=== PATIENT | male | born 1940 | race Caucasian/White ===

== ENCOUNTER 2020-05-31 15:13 | Inpatient (IN) | payer MEDICARE ==
[~2020-05-31] VITALS: Ht 170.2 cm; Wt 57.7 kg
[~2020-05-31 15:13] MED LIST: HYDROCHLOROTHIA25 M1 PO; LISINOPRIL40 MG PO; PRAVASTATIN SOD40 MG PO
[2020-05-31 15:23] VITALS: BP 111/76
[2020-05-31 15:57] LABS: ABSOLUTE LYMPHOCYTES 0.6 thou/uL (0.8-5.3); ABSOLUTE MONOCYTES 0.7 thou/uL (0.0-1.2); ABSOLUTE NEUTROPHILS 3.5 thou/uL (1.6-8.1); BASOPHILS 0.6 %; EOSINOPHILS 0.3 %; HEMATOCRIT 42.7 % (42.0-52.0); MCH 29.1 pg (26.0-34.0); MCHC 35.1 g/dL (28.0-37.0); MCV 82.9 fL (80.0-100.0); MPV 8.4 fl. (7.2-11.1); NUCLEATED RBCS 0 /100WBC; PLATELET COUNT* 243 thou/uL (150-400); POLYS 71.1 %; RBC 5.16 mil/uL (4.50-6.00); RDW-CV 14.2 % (10.5-14.5); WBC 4.9 thou/uL (4.0-11.0)
[2020-05-31] MEDS ORDERED: PROAIR HFA8.5 GM INH (15:58)
[2020-05-31] MEDS ORDERED: FLOMAX0.4 MG PO (15:59)
[2020-05-31 16:00] LABS: CALCIUM 8.4 mg/dL (8.5-10.1); CREATININE 1.7 mg/dL (0.6-1.3); POTASSIUM 3.8 mmol/L (3.5-5.1)
[2020-05-31 16:11] LABS: ALBUMIN 2.9 g/dL (3.4-5.0); TOTAL BILIRUBIN 0.7 mg/dL (<0.1-1.0); TOTAL PROTEIN 6.7 g/dL (6.4-8.2)
[2020-05-31 17:03] LABS: BE -2.2 mmol/L (-2 to +3); PCO2 45.8 mmHg (35.0-45.0); PO2 85.8 mmHg (75.0-100.0); pH 7.335 (7.340-7.450)
[2020-05-31 18:30] VITALS: BP 100/61
[2020-05-31 18:34] LABS: URINE BILIRUBIN NEGATIVE (Negative); URINE BLOOD NEGATIVE (Negative); URINE CLARITY CLEAR; URINE COLOR YELLOW; URINE GLUCOSE-RANDOM NEGATIVE (Negative); URINE KETONES NEGATIVE (Negative); URINE LEUKOCYTES-REFLEX NEGATIVE (Negative); URINE NITRITE-REFLEX NEGATIVE (Negative); URINE PROTEIN TRACE (Negative); URINE SPECIFIC GRAVITY >= 1.030 (1.005-1.030)
[2020-05-31 20:30] VITALS: BP 130/64
[2020-06-01] VITALS: BP 141/71
[2020-06-01 04:00] VITALS: BP 141/74
--- NOTE | 2020-06-01 07:21 | NUR ---
RECIEVED REPORT FROM ED RN. PT TRANSFERRED TO 233. PT A&OX4. 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 ADMISSION HISTORY & PHYSICAL ASSESSMENT COMPLETED AND CHARTED. PT ON O2 AT 4L NC. PT TRACING SR ON TELE. PT COMPLAINED OF BILATERAL SHOULDER PAIN-REFUSED PAIN MED. RELAYED VQ SCAN RESULT TO DR KEATING WITH NEW NEW ORDER. PLACED ON ENHANCED PRECAUTION. PT WITH LEFT FOREARM MARIKA TEAR-CLEANED, PAT DRY, PHOTOGRAPH TAKEN AND COVERED WITH MEPILEX. FALL PRECAUTIONS IN PLACE. CALL LIGHT WITHIN REACH.
[2020-06-01 08:43] LABS: CALCIUM 7.6 mg/dL (8.5-10.1); CREATININE 1.4 mg/dL (0.6-1.3); MAGNESIUM 1.6 mg/dL (1.8-2.4); POTASSIUM 3.9 mmol/L (3.5-5.1)
--- NOTE | 2020-06-01 10:25 | EKG ---
[place] [address] ELECTROCARDIOGRAM REPORT Name: REYNOLD FIGUEROA Room: [place] [address] ADM IN .R.#: [id number] Admission: 05/31/20 Attend Phys: Miguel Schafer, Discharge: Date of : 40 Date of Service: 05/31/20 1712 Report #: [id number] THIS REPORT FOR: //name// [facility] ED Test Date: 2020-05-31 Test Time: 17:12:27 Pat Name: REYNOLD FIGUEROA Department: Room: [facility] Gender: M Claim Attorney: william : 1940 Requested By: Mervin Martinez Order Number: [id number] MD: Amilcar Castellanos Measurements Intervals [place] Rate: 88 P: 77 [place]: 130 QRS: 52 QRSD: 70 T: 53 QT: 349 QTc: 423 Interpretive Statements Sinus rhythm LAE, consider biatrial enlargement low voltage Artifact in lead(s) II,III,aVR,aVL,aVF,V1,V2,V3,V4,V5,V6 Compared to ECG 12/08/2009 17:27:32 low voltage now present Electronically Signed On 06-01-2020 10:25:32 CDT by Amilcar Castellanos [email or web address] <ELECTRONICALLY SIGNED> By: Amilcar Castellanos MD, [facility] 06/01/20 1025 11 11 Amilcar Castellanos MD, [facility] /EPI
[2020-06-01 11:30] VITALS: BP 123/63
[2020-06-01 16:00] VITALS: BP 138/70
--- NOTE | 2020-06-01 18:45 | NUR ---
PT IS ALERT AND ORIENTED [place] AND FORGETFUL VERY PLEASANT DENIES PAIN UNLESS MOVING AROUND SOA NOTED WITH ANY ACTIVITY SITTING UP AT 90 DEGREES TO HELP 4L NC WEARS 3L NC AT HOME NOT COUGHING ADEQUATELY WAITING ON A GOOD SPUTUM SAMPLE IV ABT AND VIRAL CONT WHEEZES NOTED AUDIBLY THIS AM , BETTER DAY PROGRESSED MAGNESIUM REPLACED CALL LIGHT IN REACH DISCUSSED CALLING OUT IF NEEDS TO GET UP SINCE PREVIOUS FALL
[2020-06-01 20:00] VITALS: BP 125/58
[2020-06-01 23:56] VITALS: BP 140/66
[2020-06-02 04:59] LABS: HEMATOCRIT 37.4 % (42.0-52.0); MCH 28.3 pg (26.0-34.0); MCHC 34.5 g/dL (28.0-37.0); MCV 81.8 fL (80.0-100.0); MPV 8.1 fl. (7.2-11.1); RBC 4.58 mil/uL (4.50-6.00); RDW-CV 14.4 % (10.5-14.5)
[2020-06-02 05:02] VITALS: BP 150/60
[2020-06-02 05:09] LABS: HEMOGLOBIN 12.9 gm/dL (14.0-18.0)
[2020-06-02 05:17] LABS: ALBUMIN 2.6 g/dL (3.4-5.0); CALCIUM 7.8 mg/dL (8.5-10.1); CREATININE 1.4 mg/dL (0.6-1.3); MAGNESIUM 1.8 mg/dL (1.8-2.4); POTASSIUM 3.3 mmol/L (3.5-5.1); TOTAL BILIRUBIN 0.5 mg/dL (<0.1-1.0); TOTAL PROTEIN 6.2 g/dL (6.4-8.2)
[2020-06-02 08:00] VITALS: BP 142/80
--- NOTE | 2020-06-02 08:01 | NUR ---
ASSUMED CREA OF PT AFTE REPORT AT 1930. PT A&OX4. VSS. PHYSICAL ASSESSMENT COMPLETED AND CHARTED. PT ON O2 AT 4L NC-O2 SAT 84-85%. INCREASED O2 AT 5L NC WITH O2 SAT OF 90-92%.SOB WITH ACTIVITY NOTED. PT COMPLAINED OF BILATERAL SHOULDER PAIN-MED GIVEN PER MAR. MAINTAINED ON ENHANCED ISOLATION. FALL PRECAUTIONS IN PLACE. CALL LIGHT WITHIN REACH.
[2020-06-02 12:00] VITALS: BP 141/85
[2020-06-02 16:00] VITALS: BP 133/66
--- NOTE | 2020-06-02 16:51 | NUR ---
PT IN ENCHANCED PRECAUTIONS FOR COVID 19. PT REPORTS SOA WITH EXERTION BUT STATES IT IS BASELINE. IV REMDESVIR THIS AM. DENIES PAIN OR N/V. O@3L NC WHICH IS HOME DOSE
[2020-06-02 20:00] VITALS: BP 141/60
[2020-06-03] VITALS (7 sets, daily range): BP systolic 143–150; BP diastolic 57–74
[2020-06-03 04:58] LABS: HEMATOCRIT 39.7 % (42.0-52.0); HEMOGLOBIN 13.6 gm/dL (14.0-18.0); MCH 28.2 pg (26.0-34.0); MCHC 34.2 g/dL (28.0-37.0); MCV 82.3 fL (80.0-100.0); MPV 8.3 fl. (7.2-11.1); RBC 4.82 mil/uL (4.50-6.00); RDW-CV 14.3 % (10.5-14.5); WBC 6.1 thou/uL (4.0-11.0)
[2020-06-03 05:39] LABS: ALBUMIN 2.7 g/dL (3.4-5.0); CALCIUM 7.9 mg/dL (8.5-10.1); MAGNESIUM 1.8 mg/dL (1.8-2.4); TOTAL BILIRUBIN 0.7 mg/dL (<0.1-1.0)
--- NOTE | 2020-06-03 07:22 | NUR ---
ASSUMED CARE OF PT AFTER REPORT AT 1930. PT A&OX4. VSS. PHYSICAL ASSESSMENT COMPLETED AND CHARTED. PT VERY SOB ON EXERTION- O2 SAT CAN DROPPED DOWN TO 70'S. PT O2 TITRATED ACCORDINGLY. PT COMPLAINED OF BILATERAL SHUOLDER-MED GIVEN PER OCT. FALL PRECAUTIONS IN PLACE. CALL LIGHT WITHIN REACH. MAINTAINED ON ENHANCED ISOLATION.
[2020-06-03] MEDS ORDERED: ELIQUIS5 M1 PO (09:06)
[2020-06-03] MEDS ORDERED: ELIQUIS5 MG PO (09:06)
[2020-06-03] MEDS ORDERED: MUCINEX600 MG PO (10:07)
[2020-06-03] MEDS ORDERED: CEFDINIR300 MG PO (10:07)
[2020-06-03] MEDS ORDERED: PREDNISONE 10 M10 MG PO (10:07)
[2020-06-03] MEDS ORDERED: AZITHROMYCIN 2250 MG PO (10:07)
--- NOTE | 2020-06-03 13:16 | NUR ---
CM CONTACTD THE PT VIA THE PHONE IN THE HOSPITAL ROOM TO DISCUSS HIS HOME SITUATION, DISCHARGE PLANNING, AND TO INFORM OF THE ROLE OF CM. PT CURRENTLY UNDER ADVANCED PRECAUTIONS D/T BEING POSITIVE FOR COVID 19. PT A&O, INDEPENDENT WITH ADL'S PRIOR TO ADMIT. PT INFORMS THAT HIS SPOUSE 'TAKES CARE OF EVERYTHING SO CALL HER'. PT'S SPOUSE INFORMS THAT THE PT HAS HOME CONCENTRATOR, BUT NO OXYGEN TANKS. PT USES 3L O2 VIA NC CURRENTLY AT HOME. PT HAS NO HX OF HH OR SNF. CM INFORMED DURING PRIME ROUNDING OF THE PLAN TO D/C PT HOME TODAY WITH HH, PENDING REST AND EXERCISE TESTING. PT'S SPOUSE DECLINED HH AND STATES 'HE DOESN'T NEED IT MY DTR'S AND I TAKE CARE OF HIM AT HOME'. CM PROVIDED EDUCAION AND ENCOURAGEMENT ABOUT THE BENEFITS OF HH. PT AND SPOUSE STILL DECLINE. CM WILL REMAIN AVAILABLE TO ASSIST AND FOLLOW NEEDED.
[2020-06-03 14:06] LABS: HIV-1/HIV-2 ANTIBODY Non Reactive (Non Reactive)
--- NOTE | 2020-06-03 16:17 | NUR ---
At 1542 I obtained permission from patient to discuss his dismissal instructions with his , Мария. I contacted her via phone and reviewed pt dismissal instructions including medications and need to contact patient's primary care doctor to schedule a visit this upcoming week. I also contacted pharmacy @ [facility] to determine if patient is a candidate for influenza vaccine this admission. They suggest this topic be reviewed with patient's doctor during visit this week. I communicated this to patient's . At 1600 patient placed in wheelchair, home 02 applied at 3 liters per nc. Patient transported to main entrance and taken out to family vehicle. Dismissal paperwork given to family. At time of dismissal patient remained alert, oriented and has no c/o pain or distress. Regular nonlabored respirations. Stable at time of dismissal
--- NOTE | 2020-06-05 08:47 | NUR ---
CM CONTACTED PT'S SPOUSE TO DISCUSS ISSUE/CONCERN WITH INABILITY TO COVER ELIQUIS CO-PAY AMT. CM CONTACTED PT'S PHARMACY AND PROVIDED ELIQUIS $0 CO-PAY CARD INFO TO PHARMACY. PHARMACIST INFORMS THAT PT'S CO-PAY AMT FOR THE ELIQUIS STARTER PACK WILL BE $0. CM INFORMED PT'S SPOUSE OF THIS INFO AND SHE STATES THAT SHE WILL F/U WITH PT'S PHYSICIAN TO DISCUSS THE NEED TO CONTINUE ON THIS MEDICATION. PT HAS D/C'D AND CM NO LONGER FOLLOWING.
[2020-06-05 17:07] LABS: HEPATITIS B SURFACE AG Negative (Negative)
== END 2020-06-03 16:00 | disposition home or self-care (01) | DRG 871 ==
LOC: M.ERS 15:13 → M.TBA-ER 17:07 → M.2W 17:07
PROVIDERS: Emergency Medicine Emergency Medical Services; ADMIT Internal Medicine; ATTEND Internal Medicine
PROC: XW033E5 Introduction of Remdesivir Anti-infective into Peripheral Vein, Percutaneous Approach, New Technology Group 5 (ICD-10-PCS; principal; 2020-05-31)
DX: A41.89 Other specified sepsis (principal); U07.1 COVID-19; J12.89 Other viral pneumonia; I26.99 Other pulmonary embolism without acute cor pulmonale; J96.21 Acute and chronic respiratory failure with hypoxia; E44.0 Moderate protein-calorie malnutrition; Z68.1 Body mass index [BMI] 19.9 or less, adult; C34.90 Malignant neoplasm of unspecified part of unspecified bronchus or lung; R53.81 Other malaise; I12.9 Hypertensive chronic kidney disease with stage 1 through stage 4 chronic kidney disease, or unspecified chronic kidney disease; N18.30 Chronic kidney disease, stage 3 unspecified; F44.4 Conversion disorder with motor symptom or deficit; E78.00 Pure hypercholesterolemia, unspecified; J43.9 Emphysema, unspecified; Z92.3 Personal history of irradiation; Z79.899 Other long term (current) drug therapy; Z87.891 Personal history of nicotine dependence; Z86.73 Personal history of transient ischemic attack (TIA), and cerebral infarction without residual deficits; Z23 Encounter for immunization

== ENCOUNTER 2020-06-18 18:27 | Inpatient (IN) | payer MEDICARE ==
[~2020-06-18] VITALS: Ht 170.2 cm; Wt 61.7 kg
[~2020-06-18 18:27] MED LIST changes: +AZITHROMYCIN 2250 MG PO; +CEFDINIR300 MG PO; +ELIQUIS5 M1 PO; +ELIQUIS5 MG PO; +FLOMAX0.4 MG PO; +MUCINEX600 MG PO; +PREDNISONE 10 M10 MG PO; +PROAIR HFA8.5 GM INH
[2020-06-18 18:30] VITALS: BP 116/64
[2020-06-18 18:53] LABS: HEMATOCRIT 37.7 % (42.0-52.0); HEMOGLOBIN 12.4 gm/dL (14.0-18.0); MCH 27.6 pg (26.0-34.0); MCHC 32.9 g/dL (28.0-37.0); MCV 83.9 fL (80.0-100.0); MPV 8.4 fl. (7.2-11.1); NUCLEATED RBCS 0 /100WBC; PLATELET COUNT* 312 thou/uL (150-400); RBC 4.49 mil/uL (4.50-6.00); RDW-CV 14.9 % (10.5-14.5); WBC 15.1 thou/uL (4.0-11.0)
[2020-06-18 19:02] LABS: CALCIUM 8.8 mg/dL (8.5-10.1); CREATININE 1.8 mg/dL (0.6-1.3); POTASSIUM 4.7 mmol/L (3.5-5.1)
[2020-06-18 19:11] LABS: ALBUMIN 2.4 g/dL (3.4-5.0); MAGNESIUM 1.8 mg/dL (1.8-2.4); TOTAL BILIRUBIN 1.2 mg/dL (<0.1-1.0); TOTAL PROTEIN 6.9 g/dL (6.4-8.2)
[2020-06-18 20:06] LABS: ABSOLUTE LYMPHOCYTES 0.3 thou/uL (0.8-5.3); ABSOLUTE MONOCYTES 1.1 thou/uL (0.0-1.2); ABSOLUTE NEUTROPHILS 13.7 thou/uL (1.6-8.1)
[2020-06-18 20:07] LABS: ANISOCYTOSIS Occasional; PLATELET ESTIMATE ADEQUATE
[2020-06-18 20:12] LABS: BE -1.3 mmol/L (-2 to +3); PCO2 31.9 mmHg (35.0-45.0); pH 7.454 (7.340-7.450)
[2020-06-18 20:16] LABS: PO2 59.8 mmHg (75.0-100.0)
[2020-06-18 20:42] VITALS: BP 116/64
[2020-06-18 21:00] VITALS: BP 114/64
[2020-06-18 23:45] VITALS: BP 125/69
[2020-06-19 03:16] VITALS: BP 113/59
[2020-06-19 08:14] VITALS: BP 116/64
--- NOTE | 2020-06-19 10:20 | EKG ---
[place] [address] ELECTROCARDIOGRAM REPORT Name: REYNOLD FIGUEROA Room: [address] ADM IN [facility].#: [id number] Admission: 06/18/20 Attend Phys: Nitish Gee, Discharge: Date of : 40 Date of Service: 06/18/20 1833 Report #: [id number] THIS REPORT FOR: //name// [facility] ED Test Date: 2020-06-18 Test Time: 18:33:44 Pat Name: REYNOLD FIGUEROA Department: Room: [facility] Gender: M Marketing Sales Manager: ALE : 1940 Requested By: Mervin Martinez Order Number: [id number] MD: Amilcar Castellanos Measurements Intervals [place] Rate: 106 P: 93 [place]: 113 QRS: 32 QRSD: 159 T: -40 QT: 315 QTc: 419 Interpretive Statements Sinus tachycardia Nonspecific intraventricular conduction delay ST depr, consider ischemia, inferior leads Baseline wander in lead(s) V3 Compared to ECG 05/31/2020 17:12:27 Intraventricular conduction delay now present Possible ischemia now present Sinus rhythm no longer present Electronically Signed On 06-19-2020 10:20:08 CDT by Amilcar Castellanos [email or web address] <ELECTRONICALLY SIGNED> By: Amilcar Castellanos MD, FACC 06/19/20 1020 32 32 Amilcar Castellanos MD, FAC /EPI
[2020-06-19 11:34] VITALS: BP 124/64
[2020-06-19 16:00] VITALS: BP 144/54
[2020-06-19 21:00] VITALS: BP 138/67
[2020-06-19 22:39] LABS: URINE BILIRUBIN NEGATIVE (Negative); URINE BLOOD NEGATIVE (Negative); URINE CLARITY CLEAR; URINE COLOR YELLOW; URINE GLUCOSE-RANDOM NEGATIVE (Negative); URINE KETONES NEGATIVE (Negative); URINE LEUKOCYTES NEGATIVE (Negative); URINE NITRITE NEGATIVE (Negative); URINE PROTEIN NEGATIVE (Negative); URINE SPECIFIC GRAVITY 1.025 (1.005-1.030); URINE UROBILINOGEN 0.2 E.U./dl (0.2-1.0)
[2020-06-20 00:37] VITALS: BP 112/54
[2020-06-20 04:20] VITALS: BP 124/64
[2020-06-20 08:00] VITALS: BP 122/60
[2020-06-20 11:42] VITALS: BP 123/64
[2020-06-20 14:00] LABS: ABSOLUTE BASOPHILS 0.1 thou/uL (0.0-0.2); ABSOLUTE LYMPHOCYTES 0.1 thou/uL (0.8-5.3); ABSOLUTE MONOCYTES 0.4 thou/uL (0.0-1.2); ABSOLUTE NEUTROPHILS 12.8 thou/uL (1.6-8.1); BASOPHILS 0.6 %; HEMATOCRIT 29.7 % (42.0-52.0); LYMPHOCYTES 1.1 %; MCHC 33.5 g/dL (28.0-37.0); MCV 83.5 fL (80.0-100.0); MONOCYTES 2.7 %; MPV 8.2 fl. (7.2-11.1); NUCLEATED RBCS 0 /100WBC; PLATELET COUNT* 259 thou/uL (150-400); POLYS 95.6 %; RBC 3.56 mil/uL (4.50-6.00); RDW-CV 14.7 % (10.5-14.5); WBC 13.4 thou/uL (4.0-11.0)
[2020-06-20 14:12] LABS: ALBUMIN 2.2 g/dL (3.4-5.0); CALCIUM 8.2 mg/dL (8.5-10.1); CREATININE 1.4 mg/dL (0.6-1.3); MAGNESIUM 1.9 mg/dL (1.8-2.4); PHOSPHORUS* 2.6 mg/dL (2.5-4.9); POTASSIUM 4.4 mmol/L (3.5-5.1); TOTAL BILIRUBIN 0.4 mg/dL (<0.1-1.0)
[2020-06-20 14:27] LABS: APTT 31.2 Seconds (25.0-31.3); INR 1.1; PROTIME 11.4 Seconds (9.20-11.50)
[2020-06-20 16:00] VITALS: BP 110/52
[2020-06-20 20:00] VITALS: BP 129/60
[2020-06-21] VITALS: BP 132/66
[2020-06-21 04:00] VITALS: BP 140/69
[2020-06-21 04:35] LABS: HEMATOCRIT 28.6 % (42.0-52.0); HEMOGLOBIN 9.6 gm/dL (14.0-18.0); MCH 28.1 pg (26.0-34.0); MCHC 33.7 g/dL (28.0-37.0); MCV 83.4 fL (80.0-100.0); MPV 8.2 fl. (7.2-11.1); NUCLEATED RBCS 0 /100WBC; PLATELET COUNT* 241 thou/uL (150-400); RBC 3.43 mil/uL (4.50-6.00); RDW-CV 14.3 % (10.5-14.5); WBC 8.6 thou/uL (4.0-11.0)
[2020-06-21 04:43] LABS: CALCIUM 8.3 mg/dL (8.5-10.1); CREATININE 1.4 mg/dL (0.6-1.3); MAGNESIUM 2.1 mg/dL (1.8-2.4); POTASSIUM 4.6 mmol/L (3.5-5.1)
[2020-06-21 06:00] LABS: ABSOLUTE LYMPHOCYTES 0.1 thou/uL (0.8-5.3); ABSOLUTE MONOCYTES 0.3 thou/uL (0.0-1.2); ABSOLUTE NEUTROPHILS 8.3 thou/uL (1.6-8.1)
[2020-06-21 06:01] LABS: ANISOCYTOSIS 1+; PLATELET ESTIMATE ADEQUATE; POIKILOCYTOSIS 1+
[2020-06-21 08:00] VITALS: BP 127/59
[2020-06-21 16:00] VITALS: BP 136/64
[2020-06-21 20:00] VITALS: BP 126/62
[2020-06-21 20:04] LABS: ABSOLUTE LYMPHOCYTES 0.1 thou/uL (0.8-5.3); ABSOLUTE MONOCYTES 0.3 thou/uL (0.0-1.2); ABSOLUTE NEUTROPHILS 7.7 thou/uL (1.6-8.1); BASOPHILS 0.2 %; HEMATOCRIT 28.4 % (42.0-52.0); HEMOGLOBIN 9.5 gm/dL (14.0-18.0); LYMPHOCYTES 1.3 %; MCHC 33.5 g/dL (28.0-37.0); MCV 83.7 fL (80.0-100.0); MPV 8.1 fl. (7.2-11.1); NUCLEATED RBCS 0 /100WBC; PLATELET COUNT* 245 thou/uL (150-400); POLYS 94.5 %; RDW-CV 14.3 % (10.5-14.5); WBC 8.2 thou/uL (4.0-11.0)
[2020-06-22] VITALS: BP 131/70
[2020-06-22 04:57] VITALS: BP 102/69
[2020-06-22 08:00] VITALS: BP 139/68; BP 143/80
[2020-06-22 13:09] VITALS: BP 132/64
[2020-06-22 17:02] VITALS: BP 144/69
[2020-06-22 20:00] VITALS: BP 136/77
[2020-06-23 00:32] VITALS: BP 150/60
[2020-06-23 04:28] VITALS: BP 162/55
[2020-06-23 08:00] VITALS: BP 146/75
[2020-06-23 13:15] VITALS: BP 154/70
[2020-06-23 17:38] VITALS: BP 151/64
[2020-06-23 21:50] VITALS: BP 142/69
[2020-06-24] VITALS: BP 154/75
[2020-06-24 05:15] VITALS: BP 152/76
[2020-06-24 08:00] VITALS: BP 131/69
[2020-06-24 10:33] LABS: HEMATOCRIT 31.6 % (42.0-52.0); HEMOGLOBIN 10.5 gm/dL (14.0-18.0); MCH 28.2 pg (26.0-34.0); MCHC 33.2 g/dL (28.0-37.0); MPV 8.3 fl. (7.2-11.1); NUCLEATED RBCS 0 /100WBC; PLATELET COUNT* 257 thou/uL (150-400); RBC 3.72 mil/uL (4.50-6.00); RDW-CV 14.8 % (10.5-14.5); WBC 9.2 thou/uL (4.0-11.0)
[2020-06-24 10:50] LABS: ALBUMIN 2.2 g/dL (3.4-5.0); CALCIUM 8.1 mg/dL (8.5-10.1); CREATININE 1.4 mg/dL (0.6-1.3); POTASSIUM 4.7 mmol/L (3.5-5.1); TOTAL BILIRUBIN 1.1 mg/dL (<0.1-1.0); TOTAL PROTEIN 5.4 g/dL (6.4-8.2)
[2020-06-24 10:58] LABS: ABSOLUTE LYMPHOCYTES 0.3 thou/uL (0.8-5.3); ABSOLUTE MONOCYTES 0.5 thou/uL (0.0-1.2); ABSOLUTE NEUTROPHILS 8.5 thou/uL (1.6-8.1); PLATELET ESTIMATE ADEQUATE
[2020-06-24 12:00] VITALS: BP 141/69
[2020-06-24 16:00] VITALS: BP 138/65
[2020-06-24 20:40] VITALS: BP 151/71
[2020-06-25] VITALS: BP 153/56
[2020-06-25 05:19] LABS: ABSOLUTE LYMPHOCYTES 0.2 thou/uL (0.8-5.3); ABSOLUTE MONOCYTES 0.3 thou/uL (0.0-1.2); ABSOLUTE NEUTROPHILS 8.2 thou/uL (1.6-8.1); BASOPHILS 0.2 %; HEMOGLOBIN 9.8 gm/dL (14.0-18.0); LYMPHOCYTES 2.2 %; MCH 28.2 pg (26.0-34.0); MCHC 33.8 g/dL (28.0-37.0); MCV 83.6 fL (80.0-100.0); MONOCYTES 3.8 %; MPV 8.2 fl. (7.2-11.1); NUCLEATED RBCS 0 /100WBC; PLATELET COUNT* 232 thou/uL (150-400); POLYS 93.8 %; RBC 3.46 mil/uL (4.50-6.00); RDW-CV 14.9 % (10.5-14.5); WBC 8.8 thou/uL (4.0-11.0)
[2020-06-25 05:34] LABS: ALBUMIN 2.2 g/dL (3.4-5.0); CALCIUM 8.2 mg/dL (8.5-10.1); CREATININE 1.2 mg/dL (0.6-1.3); MAGNESIUM 1.7 mg/dL (1.8-2.4); POTASSIUM 4.9 mmol/L (3.5-5.1)
[2020-06-25 08:00] VITALS: BP 148/60
[2020-06-25 12:00] VITALS: BP 137/65
[2020-06-25 16:00] VITALS: BP 140/62
--- NOTE | 2020-06-25 17:46 | 2DMMODE ---
[place] [address] 2 D/M-MODE ECHOCARDIOGRAM Name: REYNOLD FIGUEROA Room: [place] [address] ADM IN [place].R.#: [id number] Admission: 06/18/20 Attend Phys: Nitish Gee, Discharge: Date of : 40 Date of Service: 06/25/20 1745 Report #: [id number] THIS REPORT FOR: cc: [facility] - Clinic physician unknown [facility] - Clinic physician unknown Robbin Oswald MD [facility] ~ APPROVED REPORT Study performed: 06/25/2020 09:45:10 EXAM: Comprehensive 2D, Doppler, and color-flow Echocardiogram Patient Location: Bedside BSA: 1.64 HR: 82 bpm BP: 148/60 mmHg Other Information Study Quality: Fair Indications Pulmonary Embolism Dyspnea 2D Dimensions IVSd: 12.00 (7-11mm) LVOT Diam: 19.25 (18-24mm) LVDd: 35.48 mm PWd: 10.19 (7-11mm) LVDs: 27.18 (25-40mm) Aortic Root: 22.55 mm Volumes Left Atrial Volume (Systole) LA ESV Index: 18.60 mL/m2 Aortic Valve AoV Peak Nasim.: 1.49 m/s AO Peak Gr.: 8.89 mmHg LVOT Max P.63 mmHg AO Mean Gr.: 4.60 mmHg LVOT Mean P.08 mmHg LVOT Max V: 0.81 m/s AO V2 VTI: 27.21 cm LVOT Mean V: 0.46 m/s DOMINGO (VTI): 1.89 cm2 LVOT V1 VTI: 17.70 [place] [address] 2 D/M-MODE ECHOCARDIOGRAM Name: REYNOLD FIGUEROA Room: [address] IN ..#: [id number] Admission: 06/18/20 Attend Phys: Nitish Gee, Discharge: Date of : 40 Date of Service: 06/25/20 1745 Report #: [id number] E/A Ratio: 0.59 MV Decel. Time: 294.22 ms MV E Max Nasim.: 0.52 m/s MV PHT: 85.32 ms MVA (PHT): 2.58 cm2 Pulmonary Valve PV Peak Nasim.: 1.23 m/s PV Peak Gr.: 6.07 mmHg Tricuspid Valve RAP Estimate: 5.00 mmHg TR Peak Gr.: 45.52 mmHg RVSP: 50.52 mmHg PA Pressure: 50.52 mmHg Left Ventricle The left ventricle is normal size. There is normal LV segmental wall motion. There is normal left ventricular wall thickness. Left ventricular systolic function is normal. The left ventricular ejection fraction is within the normal range. LVEF is 60-65%. Right Ventricle The right ventricle is normal size. The right ventricular systolic function is normal. Atria The left atrium size is normal. The right atrium size is normal. Aortic Valve The aortic valve is normal in structure. No aortic regurgitation is present. There is no aortic valvular stenosis. Mitral Valve The mitral valve is normal in structure. There is no mitral valve regurgitation noted. No evidence of mitral valve stenosis. Tricuspid Valve The tricuspid valve is normal in structure. Mild tricuspid regurgitation. The RVSP is 40-45 mmHg. Pulmonic Valve The pulmonary valve is normal in structure. There is no pulmonic valvular regurgitation. Great Vessels The aortic root is normal in size. Aortic [place] [address] 2 D/M-MODE ECHOCARDIOGRAM Name: REYNOLD FIGUEROA Room: [place] [address] ADM IN .R.#: [id number] Admission: 06/18/20 Attend Phys: Nitish Gee, Discharge: Date of : 40 Date of Service: 06/25/20 1745 Report #: [id number] is not visualized. Pericardium There is no pericardial effusion. <Conclusion> The left ventricle is normal size. There is normal left ventricular wall thickness. Left ventricular systolic function is normal. The left ventricular ejection fraction is within the normal range. LVEF is 60-65%. The right ventricle is normal size. The left atrium size is normal. The aortic valve is normal in structure. The mitral valve is normal in structure. The tricuspid valve is normal in structure. Mild tricuspid regurgitation. The RVSP is 40-45 mmHg. There is no pericardial effusion. There is normal LV segmental wall motion. <ELECTRONICALLY SIGNED> By: Robbin Oswald MD, FACC 06/25/20 1745 44 44 Robbin Oswald MD, FACC /INF
[2020-06-25 19:45] VITALS: BP 144/76
[2020-06-26] VITALS: BP 144/72
[2020-06-26 04:30] VITALS: BP 141/71
[2020-06-26 05:41] LABS: HEMATOCRIT 29.5 % (42.0-52.0); HEMOGLOBIN 10.2 gm/dL (14.0-18.0); MCH 28.7 pg (26.0-34.0); MCHC 34.6 g/dL (28.0-37.0); MCV 83.1 fL (80.0-100.0); MPV 8.4 fl. (7.2-11.1); RBC 3.55 mil/uL (4.50-6.00); RDW-CV 14.9 % (10.5-14.5); WBC 10.5 thou/uL (4.0-11.0)
[2020-06-26 05:56] LABS: CALCIUM 8.1 mg/dL (8.5-10.1); CREATININE 1.3 mg/dL (0.6-1.3); POTASSIUM 4.1 mmol/L (3.5-5.1)
[2020-06-26 08:00] VITALS: BP 143/76
[2020-06-26 12:00] VITALS: BP 127/59
[2020-06-26 16:00] VITALS: BP 131/76; BP 187/85
[2020-06-26 20:00] VITALS: BP 93/57
[2020-06-27 00:49] VITALS: BP 101/57
[2020-06-27 04:55] VITALS: BP 108/55
[2020-06-27 05:29] LABS: ABSOLUTE LYMPHOCYTES 0.3 thou/uL (0.8-5.3); ABSOLUTE MONOCYTES 0.3 thou/uL (0.0-1.2); ABSOLUTE NEUTROPHILS 10.3 thou/uL (1.6-8.1); BASOPHILS 0.1 %; EOSINOPHILS 0.2 %; HEMATOCRIT 27.7 % (42.0-52.0); HEMOGLOBIN 9.3 gm/dL (14.0-18.0); MCHC 33.6 g/dL (28.0-37.0); MCV 83.3 fL (80.0-100.0); MONOCYTES 3.2 %; MPV 8.4 fl. (7.2-11.1); NUCLEATED RBCS 0 /100WBC; PLATELET COUNT* 226 thou/uL (150-400); POLYS 93.5 %; RBC 3.33 mil/uL (4.50-6.00); RDW-CV 15.3 % (10.5-14.5)
[2020-06-27 05:51] LABS: CREATININE 1.3 mg/dL (0.6-1.3); POTASSIUM 3.7 mmol/L (3.5-5.1)
[2020-06-27 08:00] VITALS: BP 114/67
--- NOTE | 2020-06-27 08:28 | EKG ---
[place] [address] ELECTROCARDIOGRAM REPORT Name: REYNOLD FIGUEROA Room: [place] [address] ADM IN .R.#: [id number] Admission: 06/18/20 Attend Phys: Nitish Gee, Discharge: Date of : 40 Date of Service: 06/27/20 0143 Report #: [id number] THIS REPORT FOR: //name// [facility] Test Date: 2020-06-27 Test Time: 01:43:20 Pat Name: REYNOLD FIGUEROA Department: Room: [place] [address] Gender: M Cops: [id number] : 1940 Requested By: Que Duran Order Number: [id number] Venkatesh MD: Tyrese Lo Measurements Intervals [place] Rate: 110 P: VT: QRS: 48 QRSD: 85 T: 54 QT: 345 QTc: 467 Interpretive Statements Atrial fibrillation Borderline low voltage, extremity leads Compared to ECG 06/26/2020 14:02:50 Supraventricular tachycardia no longer present Early repolarization no longer present Electronically Signed On 06-27-2020 8:28:34 CDT by Tyrese Lo [email or web address] <ELECTRONICALLY SIGNED> By: Tyrese Lo MD, FACC 06/27/20 0828 2 2 Tyrese Lo MD, FAC /EPI
[2020-06-27 12:00] VITALS: BP 95/53
--- NOTE | 2020-06-27 12:43 | EKG ---
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: KASI : 1940 Requested By: Nitish Gee Order Number: [id number] Venkatesh MD: Robbin Oswald Measurements Intervals [place] Rate: 177 P: 71 [place]: 165 QRS: 24 QRSD: 78 T: -83 QT: 280 QTc: 481 Interpretive Statements Supraventricular tachycardia Borderline low voltage, extremity leads Repolarization abnormality, prob rate related Baseline wander in lead(s) V3 Compared to ECG 06/18/2020 18:33:44 Early repolarization now present Sinus tachycardia no longer present Intraventricular conduction delay no longer present Electronically Signed On 06-27-2020 12:43:42 CDT by Robbin Oswald [email or web address] <ELECTRONICALLY SIGNED> By: Robbin Oswald MD, FACC 06/27/20 1243 140 140 Robbin Oswald MD, [facility] /EPI
[2020-06-27 16:00] VITALS: BP 110/62
[2020-06-27 20:17] VITALS: BP 117/57
[2020-06-28] VITALS: BP 107/55
[2020-06-28 04:00] VITALS: BP 119/54
[2020-06-28 08:00] VITALS: BP 110/57; BP 121/49
[2020-06-28 12:09] VITALS: BP 108/53
--- NOTE | 2020-06-28 13:11 | EKG ---
[place] [address] ELECTROCARDIOGRAM REPORT Name: REYNOLD FIGUEROA Room: [address] ADM IN .R.#: [id number] Admission: 06/18/20 Attend Phys: Nitish Gee, Discharge: Date of : 40 Date of Service: 06/28/20 1058 Report #: [id number] THIS REPORT FOR: //name// [facility] Test Date: 2020-06-28 Test Time: 10:58:35 Pat Name: REYNOLD FIGUEROA Department: Room: [address] Gender: M Emergency Room Nurse: : 1940 Requested By: Abena Trevino Order Number: [id number] Venkatesh MD: Robbin Oswald Measurements Intervals [place] Rate: 66 P: 62 [place]: 122 QRS: 42 QRSD: 97 T: 33 QT: 464 QTc: 487 Interpretive Statements Sinus rhythm Low voltage, extremity leads Borderline prolonged QT interval Compared to ECG 06/27/2020 01:43:20 Atrial fibrillation no longer present Electronically Signed On 06-28-2020 13:11:11 CDT by Robbin Oswald [email or web address] <ELECTRONICALLY SIGNED> By: Robbin Oswald MD, FACC 06/28/20 1311 1058 1058 Robbin Oswald MD, [facility] /EPI
[2020-06-28 15:38] LABS: HEMATOCRIT 25.9 % (42.0-52.0); HEMOGLOBIN 8.7 gm/dL (14.0-18.0); MCH 28.4 pg (26.0-34.0); MCHC 33.7 g/dL (28.0-37.0); MCV 84.3 fL (80.0-100.0); MPV 8.5 fl. (7.2-11.1); NUCLEATED RBCS 0 /100WBC; PLATELET COUNT* 182 thou/uL (150-400); RBC 3.07 mil/uL (4.50-6.00); RDW-CV 15.4 % (10.5-14.5); WBC 10.9 thou/uL (4.0-11.0)
[2020-06-28 15:56] LABS: CALCIUM 7.3 mg/dL (8.5-10.1); CREATININE 1.3 mg/dL (0.6-1.3); POTASSIUM 4.4 mmol/L (3.5-5.1); TOTAL PROTEIN 4.7 g/dL (6.4-8.2)
[2020-06-28 16:10] LABS: ABSOLUTE LYMPHOCYTES 0.4 thou/uL (0.8-5.3); ABSOLUTE MONOCYTES 0.2 thou/uL (0.0-1.2); ABSOLUTE NEUTROPHILS 10.2 thou/uL (1.6-8.1); ATYPICAL LYMPHS 1 %; PLATELET ESTIMATE ADEQUATE
[2020-06-28 16:16] VITALS: BP 93/46
[2020-06-28 20:09] VITALS: BP 102/55
[2020-06-29] VITALS: BP 96/52
[2020-06-29 04:00] VITALS: BP 112/53; BP 120/62
[2020-06-29 05:43] LABS: ABSOLUTE LYMPHOCYTES 0.1 thou/uL (0.8-5.3); ABSOLUTE MONOCYTES 0.3 thou/uL (0.0-1.2); ABSOLUTE NEUTROPHILS 9.2 thou/uL (1.6-8.1); BASOPHILS 0.2 %; LYMPHOCYTES 1.2 %; MCH 28.4 pg (26.0-34.0); MCHC 33.5 g/dL (28.0-37.0); MCV 84.7 fL (80.0-100.0); MONOCYTES 3.5 %; MPV 8.7 fl. (7.2-11.1); NUCLEATED RBCS 0 /100WBC; PLATELET COUNT* 182 thou/uL (150-400); POLYS 95.1 %; RBC 3.18 mil/uL (4.50-6.00); RDW-CV 15.7 % (10.5-14.5); WBC 9.7 thou/uL (4.0-11.0)
[2020-06-29 06:27] LABS: CALCIUM 7.6 mg/dL (8.5-10.1); CREATININE 1.2 mg/dL (0.6-1.3); POTASSIUM 4.2 mmol/L (3.5-5.1); TOTAL PROTEIN 4.7 g/dL (6.4-8.2)
[2020-06-29 08:00] VITALS: BP 122/51
[2020-06-29 11:48] VITALS: BP 113/57
[2020-06-29 15:56] VITALS: BP 112/57
[2020-06-29 20:29] VITALS: BP 106/57
[2020-06-30] VITALS: BP 133/62
[2020-06-30 04:00] VITALS: BP 133/65
[2020-06-30 05:53] LABS: ABSOLUTE LYMPHOCYTES 0.2 thou/uL (0.8-5.3); ABSOLUTE MONOCYTES 0.4 thou/uL (0.0-1.2); ABSOLUTE NEUTROPHILS 10.3 thou/uL (1.6-8.1); BASOPHILS 0.1 %; EOSINOPHILS 0.1 %; HEMATOCRIT 26.8 % (42.0-52.0); HEMOGLOBIN 9.1 gm/dL (14.0-18.0); LYMPHOCYTES 1.6 %; MCH 28.7 pg (26.0-34.0); MCHC 33.9 g/dL (28.0-37.0); MCV 84.7 fL (80.0-100.0); MONOCYTES 3.7 %; MPV 8.8 fl. (7.2-11.1); NUCLEATED RBCS 0 /100WBC; PLATELET COUNT* 165 thou/uL (150-400); POLYS 94.5 %; RBC 3.17 mil/uL (4.50-6.00); RDW-CV 15.7 % (10.5-14.5); WBC 10.9 thou/uL (4.0-11.0)
[2020-06-30 06:10] LABS: CALCIUM 7.6 mg/dL (8.5-10.1); CREATININE 1.3 mg/dL (0.6-1.3); POTASSIUM 3.6 mmol/L (3.5-5.1); TOTAL PROTEIN 4.9 g/dL (6.4-8.2)
[2020-06-30 08:00] VITALS: BP 114/59
[2020-06-30] MEDS ORDERED: DILTIAZEM 24HR180 M1 PO (11:22)
[2020-06-30] MEDS ORDERED: PACERONE 200 M200 M1 PO (11:22)
[2020-06-30] MEDS ORDERED: TRAMADOL 50 MG50 MG PO (11:25)
[2020-06-30] MEDS ORDERED: NEXIUM40 MG PO (11:25)
[2020-06-30 12:00] VITALS: BP 128/65
[2020-06-30 20:00] VITALS: BP 132/79
[2020-07-01] VITALS (7 sets, daily range): BP systolic 125–141; BP diastolic 61–90
[2020-07-01] MEDS ORDERED: PACERONE 200 M200 M1 PO (07:55)
--- NOTE | 2020-07-03 13:00 | CON ---
[address] [address] CONSULTATION Name: REYNOLD FIGUEROA Room: [address] IN [facility].#: [id number] Admission: 06/18/20 Attend Phys: Nitish Gee MD Discharge: 07/01/20 Date of : 40 Report #: [id number] THIS REPORT FOR: //name// cc: [facility] - Clinic physician unknown [facility] - Clinic physician unknown ~ DATE OF SERVICE: 06/20/2020 REQUESTING PHYSICIAN: Dr. Sweet. INDICATION FOR CONSULTATION: Acute hypoxemic respiratory failure. HISTORY OF PRESENT ILLNESS: This is a 79-year-old gentleman with past medical history includes a history of carcinoma of the lung, the patient does not recall what type of lung cancer he had and on which side, he says he has received radiation treatments for this, also does have a history of COPD, he is on long-term oxygen, is not on long-term prednisone. He also has mild elevation in creatinine at times, although his creatinine has at times does touch normal levels at 1.0. The patient was recently admitted to this hospital and was found to have COVID-19. The patient at that time did receive remdesivir in addition to corticosteroids. The patient also was treated with Zithromax as well as cefdinir. During the previous hospitalization, the patient did have a perfusion scan, which showed several unexplained filling defects. This is consistent with acute pulmonary emboli. Therefore, the patient also was anticoagulated at that time. The patient says that he has been taking his anticoagulation which is Eliquis regularly since then. The patient's condition still worsened and he presented to the Emergency Room 2 days ago. His COVID antigen is now negative; however, his PCR is positive. He was now desaturating to 87% on room air. He does take 3 liters oxygen at home. The patient was clearly labored and short of breath and therefore he was admitted. He does have a cough, not much sputum. No chest pain, no swelling of lower extremities or calf pain, not been febrile, has not had upper respiratory complaints. Since admission however, there has been a worsening in his respiratory status. He was initially requiring only 3 liters of oxygen to maintain O2 saturation in the low 90s. The patient now is up to 10 liters and is more short of breath. He answers to the negative for 12 questions for review of systems except as mentioned above. PAST MEDICAL HISTORY: Recent COVID-19, COPD, on oxygen long-term, carcinoma of the lung. He has had several radiation treatments at [facility]. 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 Creatinine mostly elevated to around 1.3-1.4, but at times, does go down to 1.0, hypertension. I do not have a measure of his left ventricular ejection fraction available at this time. He is on long-term oxygen as above. SOCIAL HISTORY: Extensive history of smoking more than a pack a day for several decades, discontinued 10 years ago. 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 No known history of heavy alcohol use or illegal drug use. CURRENT MEDICATIONS: List in [employer] reviewed. HOME MEDICATIONS: List in [employer] reviewed. Also, see discussion above. FAMILY HISTORY: There is no pertinent family history. ALLERGIES: No known drug allergies. PHYSICAL EXAMINATION: He does appear to be short of breath at rest.: He is alert, awake and oriented. He was tachypneic into the mid 20s at the time of my examination did have some accessory muscle use. VITAL SIGNS: Pulse still of 70 and a blood pressure 123/64. He was saturating around 92-93% on 10 liters oxygen via nasal cannula. Afebrile with a temperature of 36.9. HEENT: Head is normocephalic and atraumatic. Pupils are equal and reactive. There is no throat erythema. There is no thrush in his throat. NECK: Does not show raised JVP, asymmetry, mass or lymph nodes. CHEST: Symmetrical expansion on inspection and palpation, on auscultation, breath sounds are bilaterally equal, but decreased. Expirations are prolonged. I do not hear any added sounds. HEART: Regular. There is no murmur. ABDOMEN: Soft and nontender. EXTREMITIES: Lower extremities show no edema, no calf tenderness. SKIN: Dry and intact. NEUROLOGICAL: Moves all extremities bilaterally equally and spontaneously with no focal deficit identified. LABORATORY DATA: The patient's CT chest as well as chest x-rays are reviewed and are as discussed below. ASSESSMENT AND PLAN: 1. Nnzjp-am-qbdeewd hypoxemic respiratory failure. It appears likely to me that the patient is bronchospastic. In addition, he has a new opacity at the right lung base on his chest x-ray, which is likely mucous plugging. This is the likely etiology of the patient's worsening respiratory status. At this time, I would recommend that he remains on a BiPAP while asleep as well as [address] [place] [address] CONSULTATION Name: REYNOLD FIGUEROA Room: [address]#: [id number] Admission: 06/18/20 Attend Phys: Nitish Gee MD Discharge: 07/01/20 Date of : 40 Report #: [id number] p.r.n. We will continue to titrate oxygen while awake. 2. Chronic obstructive pulmonary disease exacerbation. I recommend increasing his nebulizers as well as steroids. The same are ordered. I also ordered an insulin sliding scale as I am increasing his steroids. 3. Pulmonary infiltrates. Part of this may be secondary to his malignancy. Regardless, since he has already been treated with Zithromax as well as cefdinir towards the beginning of this month I went ahead and broaden coverage to doxycycline and Zosyn. Recommend obtaining a sputum culture if possible, will send off a nasal swab for methicillin-resistant Staphylococcus aureus. 4. Mucus plugging/possible right-sided pleural effusion, the new chest x-ray is reviewed. There is volume loss and increased opacity at the right lung base compared with the x-ray done 2 days ago. It appears likely to me that this is secondary to mucous plugging. Therefore, I did order inhaled Mucomyst as well as Mucinex, also recommended BiPAP as above. If the findings persist, then I will be inclined to obtain a CT chest without contrast again tomorrow morning. 5. Carcinoma lung. There are several possibilities. 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 6. COVID-19. The patient is still COVID-19 PCR positive. Considering that he will be on nebulizers as well as a BiPAP I agree with keeping him in enhanced isolation in a negative pressure room. 6. Acute pulmonary embolism, perfusion scan as discussed above. He is too high risk to perform a CTA chest, I feel that it is reasonable to presume that he did have pulmonary emboli and treat accordingly. I would also like to do venous Dopplers. I did do a D-dimer today. I would also down the line plan to obtain an echocardiogram to look at his right heart. 7. Acute on chronic renal failure. The patient appears to have some renal insufficiency at baseline as above. His creatinine was elevated to 1.8 on admission, has now improved to 1.4. We will therefore be cautious in diuresing this patient and I did not order any diuretics at this time, I would also like to rule out any urinary tract obstruction by obtaining a renal ultrasound. 8. Clostridium difficile prophylaxis, Florastor. 9. Gastrointestinal prophylaxis, already on Pepcid. Thanks for this consultation. <ELECTRONICALLY SIGNED> By: Walter Austin MD 07/03/20 1300 1612 1706Aagnes Austin MD /nt
== END 2020-07-01 17:05 | DRG 871 ==
LOC: M.ERS 18:27 → M.TBA-ER 20:03 → M.2W 20:03
PROVIDERS: Emergency Medicine Emergency Medical Services; Family Medicine; Internal Medicine; Internal Medicine Critical Care Medicine; ADMIT Internal Medicine; ATTEND Internal Medicine
PROC: 5A09357 Assistance with Respiratory Ventilation, Less than 24 Consecutive Hours, Continuous Positive Airway Pressure (ICD-10-PCS; 2020-06-18)
PROC: XW033E5 Introduction of Remdesivir Anti-infective into Peripheral Vein, Percutaneous Approach, New Technology Group 5 (ICD-10-PCS; principal; 2020-06-20)
PROC: 5A09357 Assistance with Respiratory Ventilation, Less than 24 Consecutive Hours, Continuous Positive Airway Pressure (ICD-10-PCS; principal; 2020-06-20)
PROC: 5A09357 Assistance with Respiratory Ventilation, Less than 24 Consecutive Hours, Continuous Positive Airway Pressure (ICD-10-PCS; 2020-06-21)
PROC: 02HV33Z Insertion of Infusion Device into Superior Vena Cava, Percutaneous Approach (ICD-10-PCS; 2020-06-21)
PROC: B548ZZA Ultrasonography of Superior Vena Cava, Guidance (ICD-10-PCS; 2020-06-21)
PROC: 5A09357 Assistance with Respiratory Ventilation, Less than 24 Consecutive Hours, Continuous Positive Airway Pressure (ICD-10-PCS; 2020-06-22)
PROC: 5A09357 Assistance with Respiratory Ventilation, Less than 24 Consecutive Hours, Continuous Positive Airway Pressure (ICD-10-PCS; 2020-06-23)
PROC: 5A09357 Assistance with Respiratory Ventilation, Less than 24 Consecutive Hours, Continuous Positive Airway Pressure (ICD-10-PCS; 2020-06-24)
DX: A41.89 Other specified sepsis (principal); U07.1 COVID-19; J12.89 Other viral pneumonia; J96.21 Acute and chronic respiratory failure with hypoxia; E43 Unspecified severe protein-calorie malnutrition; J69.0 Pneumonitis due to inhalation of food and vomit; I48.20 Chronic atrial fibrillation, unspecified; I24.9 Acute ischemic heart disease, unspecified; N17.9 Acute kidney failure, unspecified; I47.1 Supraventricular tachycardia; I25.10 Atherosclerotic heart disease of native coronary artery without angina pectoris; J43.9 Emphysema, unspecified; E78.00 Pure hypercholesterolemia, unspecified; N18.9 Chronic kidney disease, unspecified; N40.0 Benign prostatic hyperplasia without lower urinary tract symptoms; I95.9 Hypotension, unspecified; E86.0 Dehydration; I12.9 Hypertensive chronic kidney disease with stage 1 through stage 4 chronic kidney disease, or unspecified chronic kidney disease; Z68.21 Body mass index [BMI] 21.0-21.9, adult; Z85.118 Personal history of other malignant neoplasm of bronchus and lung; Z86.73 Personal history of transient ischemic attack (TIA), and cerebral infarction without residual deficits; Z79.01 Long term (current) use of anticoagulants; Z79.899 Other long term (current) drug therapy; Z92.3 Personal history of irradiation; Z87.891 Personal history of nicotine dependence

== ENCOUNTER 2020-07-01 15:19 | Inpatient (IN) | payer MEDICARE ==
[~2020-07-01] VITALS: Ht 170.2 cm; Wt 60.7 kg
[~2020-07-01 15:19] MED LIST changes: +DILTIAZEM 24HR180 M1 PO; +NEXIUM40 MG PO; +PACERONE 200 M200 M1 PO; +TRAMADOL 50 MG50 MG PO
[2020-07-01 17:58] VITALS: BP 131/56
[2020-07-01 19:00] VITALS: BP 118/54
[2020-07-02 05:03] LABS: HEMATOCRIT 26.6 % (42.0-52.0); MCH 28.6 pg (26.0-34.0); MCHC 33.9 g/dL (28.0-37.0); MCV 84.2 fL (80.0-100.0); MPV 8.3 fl. (7.2-11.1); RBC 3.16 mil/uL (4.50-6.00); RDW-CV 16.1 % (10.5-14.5); WBC 10.5 thou/uL (4.0-11.0)
[2020-07-02 05:26] LABS: CALCIUM 7.8 mg/dL (8.5-10.1); CREATININE 1.1 mg/dL (0.6-1.3); POTASSIUM 4.3 mmol/L (3.5-5.1)
[2020-07-02 08:00] VITALS: BP 150/60
[2020-07-02 14:30] VITALS: BP 114/58
[2020-07-02 14:31] VITALS: BP 69/36
[2020-07-02 14:40] VITALS: BP 123/54
[2020-07-02 14:42] VITALS: BP 86/38
[2020-07-02 19:00] VITALS: BP 131/55
[2020-07-03 08:15] VITALS: BP 135/60
[2020-07-03 11:05] VITALS: BP 135/54
[2020-07-03 11:10] VITALS: BP 116/45
[2020-07-03 11:15] VITALS: BP 105/49
--- NOTE | 2020-07-03 11:30 | EKG ---
[place] [address] ELECTROCARDIOGRAM REPORT Name: REYNOLD FIGUEROA Room: [address] ADM IN M.R.#: [id number] Admission: 07/01/20 Attend Phys: Keshawn Woodward MD Discharge: Date of : 40 Date of Service: 07/02/20 1606 Report #: [id number] THIS REPORT FOR: //name// [facility] Test Date: 2020-07-02 Test Time: 16:06:54 Pat Name: REYNOLD FIGUEROA Department: Room: [address] Gender: M Environmental Associate: NIKKI : 1940 Requested By: Abena Trevino Order Number: [id number] Venkatesh MD: Amilcar Castellanos Measurements Intervals [place] Rate: 74 P: 82 MD: 141 QRS: 45 QRSD: 95 T: 81 QT: 404 QTc: 449 Interpretive Statements Sinus rhythm Low voltage, extremity leads Compared to ECG 06/28/2020 10:58:35 No significant changes Electronically Signed On 07-03-2020 11:30:35 MICROELECTRONICS ASSEMBLER by Amilcar Castellanos [email or web address] <ELECTRONICALLY SIGNED> By: Amilcar Castellanos MD, [facility] 07/03/20 1130 1606 1606 Amilcar Castellanos MD, [facility] /EPI
[2020-07-03 20:24] VITALS: BP 172/93
[2020-07-04 08:00] VITALS: BP 131/57
[2020-07-05 08:00] VITALS: BP 118/53
[2020-07-05 11:47] VITALS: BP 115/52; BP 143/61; BP 165/51
[2020-07-05 19:30] VITALS: BP 136/59
[2020-07-05 19:33] VITALS: BP 117/66
[2020-07-05 19:35] VITALS: BP 104/51
[2020-07-06 07:45] VITALS: BP 146/61
[2020-07-06 21:30] VITALS: BP 142/54
[2020-07-06 21:33] VITALS: BP 105/47
[2020-07-06 21:36] VITALS: BP 101/43
[2020-07-07 07:45] VITALS: BP 139/64
[2020-07-07 11:51] LABS: URINE BILIRUBIN NEGATIVE (Negative); URINE BLOOD NEGATIVE (Negative); URINE CLARITY CLEAR; URINE COLOR YELLOW; URINE GLUCOSE-RANDOM NEGATIVE (Negative); URINE KETONES NEGATIVE (Negative); URINE LEUKOCYTES 2+ (Negative); URINE NITRITE NEGATIVE (Negative); URINE PROTEIN NEGATIVE (Negative); URINE SPECIFIC GRAVITY 1.015 (1.005-1.030)
[2020-07-07 13:15] LABS: SQUAMOUS 0-3 Few /LPF (0-3); URINE RBC None Seen /HPF (0-2); URINE WBC >25 Many /HPF (0-5)
[2020-07-07 13:16] LABS: CASTS None Seen /LPF (None Seen); CRYSTALS None Seen /LPF (None Seen)
[2020-07-07 20:30] VITALS: BP 146/56
[2020-07-07 20:34] VITALS: BP 145/59
[2020-07-07 20:40] VITALS: BP 112/43
[2020-07-08] VITALS (7 sets, daily range): BP systolic 104–140; BP diastolic 46–62
[2020-07-09 09:43] VITALS: BP 156/56
[2020-07-09 15:07] VITALS: BP 122/51
[2020-07-09 15:10] VITALS: BP 86/40
[2020-07-09 19:00] VITALS: BP 137/58
[2020-07-09 19:02] VITALS: BP 142/58
[2020-07-09 19:04] VITALS: BP 104/44
[2020-07-10] VITALS (7 sets, daily range): BP systolic 108–164; BP diastolic 45–68
[2020-07-11 08:00] VITALS: BP 123/63
[2020-07-11 20:00] VITALS: BP 135/64
[2020-07-12 08:00] VITALS: BP 119/60
[2020-07-12 20:19] VITALS: BP 161/67
[2020-07-13 07:30] VITALS: BP 163/65
[2020-07-13 14:18] LABS: URINE BILIRUBIN NEGATIVE (Negative); URINE BLOOD NEGATIVE (Negative); URINE CLARITY CLEAR; URINE COLOR YELLOW; URINE GLUCOSE-RANDOM NEGATIVE (Negative); URINE KETONES NEGATIVE (Negative); URINE LEUKOCYTES-REFLEX 1+ (Negative); URINE NITRITE-REFLEX NEGATIVE (Negative); URINE PROTEIN NEGATIVE (Negative)
[2020-07-13 14:25] LABS: BACTERIA-REFLEX None Seen /HPF (None Seen); CASTS None Seen /LPF (None Seen); CRYSTALS None Seen /LPF (None Seen); MUCUS None Seen strn/LPF (None Seen); SQUAMOUS NONE SEEN /LPF (0-3); URINE RBC None Seen /HPF (0-2)
[2020-07-13 14:26] LABS: URINE WBC-REFLEX 0-5 Rare /HPF (0-5)
[2020-07-13 19:35] VITALS: BP 142/55
[2020-07-14 08:15] VITALS: BP 147/60
[2020-07-14 19:58] VITALS: BP 148/64
[2020-07-15 08:00] VITALS: BP 159/71
[2020-07-15 19:00] VITALS: BP 151/54
[2020-07-16 08:04] VITALS: BP 136/67
[2020-07-16 19:00] VITALS: BP 144/61
[2020-07-17 08:00] VITALS: BP 135/59
[2020-07-17 20:00] VITALS: BP 133/57
[2020-07-18 08:00] VITALS: BP 142/73
[2020-07-18 19:45] VITALS: BP 135/63
[2020-07-19 08:22] VITALS: BP 156/62
[2020-07-19 19:55] VITALS: BP 157/61
[2020-07-20 06:32] LABS: HEMATOCRIT 25.6 % (42.0-52.0); HEMOGLOBIN 8.5 gm/dL (14.0-18.0); MCH 28.7 pg (26.0-34.0); MCHC 33.3 g/dL (28.0-37.0); MCV 86.2 fL (80.0-100.0); MPV 6.7 fl. (7.2-11.1); RBC 2.97 mil/uL (4.50-6.00); RDW-CV 18.2 % (10.5-14.5); WBC 8.6 thou/uL (4.0-11.0)
[2020-07-20 06:37] LABS: CALCIUM 7.8 mg/dL (8.5-10.1); CREATININE 0.9 mg/dL (0.6-1.3); POTASSIUM 4.5 mmol/L (3.5-5.1)
[2020-07-20 08:03] VITALS: BP 133/59
[2020-07-20 20:00] VITALS: BP 123/61
[2020-07-21 07:38] VITALS: BP 134/54
[2020-07-21 20:00] VITALS: BP 146/62
[2020-07-22 08:00] VITALS: BP 139/66
[2020-07-22 19:00] VITALS: BP 155/69
[2020-07-23 08:00] VITALS: BP 144/67
[2020-07-23 19:00] VITALS: BP 166/66
[2020-07-24 08:00] VITALS: BP 111/54
[2020-07-24 17:04] VITALS: BP 111/54
[2020-07-24 19:00] VITALS: BP 119/58
[2020-07-24] MEDS ORDERED: LIDOPATCH1 EACH TOP (20:16)
[2020-07-24] MEDS ORDERED: NEXIUM40 MG PO (20:16)
[2020-07-24] MEDS ORDERED: CEFDINIR300 MG PO (20:16)
[2020-07-24] MEDS ORDERED: TRAMADOL 50 MG50 MG PO (20:16)
[2020-07-24] MEDS ORDERED: PREDNISONE 10 M10 MG PO (20:16)
[2020-07-24] MEDS ORDERED: PACERONE 200 M200 M1 PO (20:16)
[2020-07-24] MEDS ORDERED: IPRAT-ALBUT 0.5-3 ML INH (20:16)
[2020-07-24] MEDS ORDERED: MUCINEX600 MG PO (20:16)
[2020-07-24] MEDS ORDERED: CARDIZEM CD120 MG PO (20:16)
[2020-07-25 10:06] VITALS: BP 142/54
[2020-07-25 15:27] VITALS: BP 111/54
[2020-07-25 17:06] VITALS: BP 111/54
== END 2020-07-25 16:00 | disposition home health service (06) | DRG 947 ==
LOC: M.REH 15:19
PROVIDERS: Internal Medicine; ADMIT Physical Medicine & Rehabilitation; ATTEND Physical Medicine & Rehabilitation
PROC: 5A0935A Assistance with Respiratory Ventilation, Less than 24 Consecutive Hours, High Flow/Velocity Cannula (ICD-10-PCS; principal; 2020-07-24)
DX: R53.81 Other malaise (principal); U07.1 COVID-19; A41.9 Sepsis, unspecified organism; J96.20 Acute and chronic respiratory failure, unspecified whether with hypoxia or hypercapnia; J15.6 Pneumonia due to other Gram-negative bacteria; E78.5 Hyperlipidemia, unspecified; J43.9 Emphysema, unspecified; I12.9 Hypertensive chronic kidney disease with stage 1 through stage 4 chronic kidney disease, or unspecified chronic kidney disease; N18.9 Chronic kidney disease, unspecified; I95.1 Orthostatic hypotension; I48.0 Paroxysmal atrial fibrillation; M75.102 Unspecified rotator cuff tear or rupture of left shoulder, not specified as traumatic; B37.9 Candidiasis, unspecified; Z86.73 Personal history of transient ischemic attack (TIA), and cerebral infarction without residual deficits; Z85.118 Personal history of other malignant neoplasm of bronchus and lung

== ENCOUNTER 2020-07-31 08:43 | Inpatient (IN) | payer MEDICARE ==
[~2020-07-31] VITALS: Ht 177.8 cm; Wt 65.4 kg
[2020-07-31] VITALS (7 sets, daily range): BP systolic 90–111; BP diastolic 45–55
--- NOTE | ~2020-07-31 | CON ---
[address] [address] CONSULTATION Name: REYNOLD FIGUEROA Room: [address] IN M.R.#: [id number] Admission: 07/31/20 Attend Phys: Nitish Gee MD Discharge: Date of : 40 Report #: [id number] THIS REPORT FOR: //name// cc: [facility] - [facility] physician unknown [facility] - [facility] physician unknown ~ DATE OF SERVICE: 08/01/2020 Please note at the time of this dictation, the patient was seen and physically examined by myself. REASON FOR CONSULTATION: Acute anemia. 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 His symptoms progressively got worse and prompting him to be brought into the Emergency Room due to the increased shortness of breath. Upon arrival to the ER, he was intubated and placed on the ventilator with sedation. His is at the bedside and has given the majority of his history. She states that he had been home, he has not had a bowel movement since prior to discharge. She states normally he goes every other day. He had been taking stool softeners on a regular basis, but had no evacuation. He had his last colonoscopy about 4 years ago at [facility]. She states he had polyps. She does not know what kind or further recommendations. He has never had an upper scope done. She denies stating that he has not been taking any NSAIDs while at home either. He does not complain of any acid reflux, heartburn or any abdominal pain prior to his admission. It was noted on admission, his hemoglobin was 9.2 and overnight he dropped down to 6.3, he is currently getting a unit of blood at this time. No overt bleeding has been noted through his OG or via a bowel movement. ALLERGIES: No known drug allergies. MEDICATIONS: From home include his Flomax and albuterol. He was on prednisone, Eliquis and diltiazem, amiodarone, Nexium, Mucinex, lidocaine patch, Cardizem and Omnicef. PAST MEDICAL HISTORY: Includes hypertension, high cholesterol. He has had a CVA, severe emphysema, history of lung cancer in the past, COPD O2 dependent and atrial fib in which he takes Eliquis for. PAST SURGICAL HISTORY: [place] [address] CONSULTATION Name: REYNOLD FIGUEROA Room: [address] IN [facility]#: [id number] Admission: 07/31/20 Attend Phys: Nitish Gee MD Discharge: Date of : 40 Report #: [id number] FAMILY HISTORY: Negative for any GI or female cancers. SOCIAL HISTORY: Past use of alcohol in the remote past. Denies any illegal drug use. Quit smoking several years ago when he found that he had lung cancer. REVIEW OF SYSTEMS: Twelve-point review of systems is essentially negative except what is mentioned in the HPI. PHYSICAL EXAMINATION: VITAL SIGNS: Temperature 36.1, pulse 71, respirations 17, blood pressure 110/67. HEART: Regular rate and rhythm. LUNGS: Diminished, few wheezes. ABDOMEN: Soft, positive bowel sounds in all 4 quadrants with no masses or tenderness noted. LABORATORY DATA: Hemoglobin on admission was 9.2 and trended around 9-10 on his last admission, this morning, it was initially 6.3 redrawn again at 6.6 and he is currently getting a unit of blood, white count 3.8, platelets 275, BUN is 20, creatinine is 1, GFR is 72. His calcium was low at 7.1. IMAGING: He had an abdominal x-ray that showed correct placement of the OG tube at that time. Chest x-ray this morning shows diffuse interstitial nodular opacities throughout the right lung with pleural thickening. IMPRESSION: 1. Acute on chronic anemia. 2. Constipation. 3. Anticoagulant therapy, Eliquis for his atrial fibrillation. 4. Respiratory failure with chronic obstructive pulmonary disease exacerbation. 5. Recent COVID. 6. History of lung cancer. PLAN: 1. Monitor for any overt bleeding. 2. Labs, ferritin, iron studies, B12 and soluble transferrin receptor. 3. Continue to hold his Eliquis. 4. Obtain records from [facility] regarding his last colonoscopy. 5. Further recommendations to be made once the [place] [address] CONSULTATION Name: REYNOLD FIGUEROA Room: [address] IN [facility].#: [id number] Admission: 07/31/20 Attend Phys: Nitish Gee MD Discharge: Date of : 40 Report #: [id number] Thank you for allowing us to participate in this patient's care. Please do not hesitate to call with any questions in regard to this consult. By: [id number] Williamson MD /jose alejandro
[~2020-07-31 08:43] MED LIST changes: +CARDIZEM CD120 MG PO; +IPRAT-ALBUT 0.5-3 ML INH; +LIDOPATCH1 EACH TOP
[2020-07-31 09:10] LABS: HEMATOCRIT 27.8 % (42.0-52.0); HEMOGLOBIN 9.2 gm/dL (14.0-18.0); MCH 28.5 pg (26.0-34.0); MCV 86.6 fL (80.0-100.0); MPV 6.7 fl. (7.2-11.1); NUCLEATED RBCS 0 /100WBC; PLATELET COUNT* 381 thou/uL (150-400); RBC 3.21 mil/uL (4.50-6.00); RDW-CV 17.5 % (10.5-14.5); WBC 6.9 thou/uL (4.0-11.0)
[2020-07-31 09:19] LABS: CALCIUM 7.5 mg/dL (8.5-10.1); CREATININE 1.2 mg/dL (0.6-1.3); POTASSIUM 4.4 mmol/L (3.5-5.1)
[2020-07-31 09:31] LABS: ALBUMIN 1.4 g/dL (3.4-5.0); TOTAL BILIRUBIN 0.4 mg/dL (<0.1-1.0); TOTAL PROTEIN 5.3 g/dL (6.4-8.2)
[2020-07-31 10:31] LABS: URINE BILIRUBIN NEGATIVE (Negative); URINE BLOOD NEGATIVE (Negative); URINE CLARITY CLEAR; URINE COLOR YELLOW; URINE GLUCOSE-RANDOM NEGATIVE (Negative); URINE KETONES NEGATIVE (Negative); URINE LEUKOCYTES-REFLEX NEGATIVE (Negative); URINE NITRITE-REFLEX NEGATIVE (Negative); URINE PROTEIN 1+ (Negative); URINE SPECIFIC GRAVITY >= 1.030 (1.005-1.030)
[2020-07-31 10:33] LABS: BE -0.4 mmol/L (-2 to +3)
[2020-07-31 10:35] LABS: PCO2 64.3 mmHg (35.0-45.0); PO2 182.2 mmHg (75.0-100.0); pH 7.256 (7.340-7.450)
[2020-07-31 10:45] LABS: ABSOLUTE LYMPHOCYTES 1.3 thou/uL (0.8-5.3); ABSOLUTE MONOCYTES 0.3 thou/uL (0.0-1.2); ABSOLUTE NEUTROPHILS 5.2 thou/uL (1.6-8.1); METAMYELOCYTES 9 %
[2020-07-31 10:55] LABS: PLATELET ESTIMATE ADEQUATE
--- NOTE | 2020-07-31 16:42 | EKG ---
[place] [address] ELECTROCARDIOGRAM REPORT Name: REYNOLD FIGUEROA Room: [address] ADM IN .R.#: [id number] Admission: 07/31/20 Attend Phys: Nitish Gee, Discharge: Date of : 40 Date of Service: 07/31/20 0858 Report #: [id number] THIS REPORT FOR: //name// [facility] ED Test Date: 2020-07-31 Test Time: 08:58:39 Pat Name: REYNOLD FIGUEROA Department: Room: [facility] Gender: M [employer] T[employer]: TAM : 1940 Requested By: Mervin Martinez Order Number: [id number] MD: Amilcar Castellanos Measurements Intervals [place] Rate: 87 P: 64 AK: 161 QRS: 31 QRSD: 101 T: 54 QT: 410 QTc: 494 Interpretive Statements Sinus rhythm Borderline low voltage, extremity leads Borderline prolonged QT interval Compared to ECG 07/02/2020 16:06:54 No significant changes Electronically Signed On 07-31-2020 16:42:14 BLOCK CLEANER by Amilcar Castellanos [email or web address] <ELECTRONICALLY SIGNED> By: Amilcar Castellanos MD, FAC 07/31/20 1642 0858 0858 Amilcar Castellanos MD, [facility] /EPI
[2020-07-31 17:11] LABS: BE 0.8 mmol/L (-2 to +3); PCO2 49.1 mmHg (35.0-45.0); PO2 95.6 mmHg (75.0-100.0)
[2020-07-31 18:08] LABS: CALCIUM 7.2 mg/dL (8.5-10.1); CREATININE 0.9 mg/dL (0.6-1.3); MAGNESIUM 1.9 mg/dL (1.8-2.4); POTASSIUM 4.5 mmol/L (3.5-5.1)
[2020-07-31 18:12] LABS: APTT 29.1 Seconds (25.0-31.3); INR 1.2; PROTIME 12.4 Seconds (9.20-11.50)
[2020-08-01] VITALS (25 sets, daily range): BP systolic 92–127; BP diastolic 45–58
[2020-08-01 04:08] LABS: ABSOLUTE LYMPHOCYTES 0.2 thou/uL (0.8-5.3); ABSOLUTE MONOCYTES 0.1 thou/uL (0.0-1.2); BASOPHILS 0.1 %; LYMPHOCYTES 5.6 %; MCH 28.5 pg (26.0-34.0); MCHC 32.8 g/dL (28.0-37.0); MCV 86.9 fL (80.0-100.0); MONOCYTES 2.1 %; MPV 6.9 fl. (7.2-11.1); NUCLEATED RBCS 0 /100WBC; POLYS 92.2 %; RBC 2.21 mil/uL (4.50-6.00); RDW-CV 17.6 % (10.5-14.5); WBC 3.3 thou/uL (4.0-11.0)
[2020-08-01 04:25] LABS: CALCIUM 7.1 mg/dL (8.5-10.1); MAGNESIUM 1.8 mg/dL (1.8-2.4); POTASSIUM 4.6 mmol/L (3.5-5.1); TOTAL BILIRUBIN 0.5 mg/dL (<0.1-1.0); TOTAL PROTEIN 4.5 g/dL (6.4-8.2)
[2020-08-01 05:45] LABS: PLATELET COUNT* 243 thou/uL (150-400)
[2020-08-01 05:46] LABS: HEMATOCRIT 19.2 % (42.0-52.0); HEMOGLOBIN 6.3 gm/dL (14.0-18.0)
[2020-08-01 08:07] LABS: BE -3.8 mmol/L (-2 to +3); PCO2 42.9 mmHg (35.0-45.0); PO2 90.7 mmHg (75.0-100.0); pH 7.328 (7.340-7.450)
[2020-08-01 09:18] LABS: ABSOLUTE LYMPHOCYTES 0.2 thou/uL (0.8-5.3); ABSOLUTE MONOCYTES 0.1 thou/uL (0.0-1.2); ABSOLUTE NEUTROPHILS 3.5 thou/uL (1.6-8.1); BASOPHILS 0.2 %; MCH 28.5 pg (26.0-34.0); MCHC 33.3 g/dL (28.0-37.0); MCV 85.6 fL (80.0-100.0); MONOCYTES 2.3 %; MPV 7.1 fl. (7.2-11.1); NUCLEATED RBCS 0 /100WBC; PLATELET COUNT* 275 thou/uL (150-400); POLYS 91.5 %; RDW-CV 17.6 % (10.5-14.5); WBC 3.8 thou/uL (4.0-11.0)
[2020-08-01 09:20] LABS: HEMATOCRIT 19.7 % (42.0-52.0); HEMOGLOBIN 6.6 gm/dL (14.0-18.0)
[2020-08-01 11:33] LABS: % SATURATION 16 % (20-39); IRON 16 ug/dL (50-175)
[2020-08-01 13:11] LABS: HEMATOCRIT 23.4 % (42.0-52.0); HEMOGLOBIN 7.8 gm/dL (14.0-18.0)
[2020-08-02] VITALS (29 sets, daily range): BP systolic 119–138; BP diastolic 55–63
[2020-08-02 03:54] LABS: ABSOLUTE LYMPHOCYTES 0.2 thou/uL (0.8-5.3); ABSOLUTE MONOCYTES 0.2 thou/uL (0.0-1.2); ABSOLUTE NEUTROPHILS 7.2 thou/uL (1.6-8.1); BASOPHILS 0.3 %; HEMATOCRIT 24.6 % (42.0-52.0); HEMOGLOBIN 8.2 gm/dL (14.0-18.0); LYMPHOCYTES 3.1 %; MCH 29.1 pg (26.0-34.0); MCHC 33.3 g/dL (28.0-37.0); MCV 87.3 fL (80.0-100.0); MONOCYTES 2.7 %; MPV 6.9 fl. (7.2-11.1); NUCLEATED RBCS 0 /100WBC; PLATELET COUNT* 342 thou/uL (150-400); POLYS 93.9 %; RBC 2.82 mil/uL (4.50-6.00); WBC 7.6 thou/uL (4.0-11.0)
[2020-08-02 04:18] LABS: ALBUMIN 1.9 g/dL (3.4-5.0); CALCIUM 7.2 mg/dL (8.5-10.1); POTASSIUM 4.4 mmol/L (3.5-5.1); TOTAL BILIRUBIN 0.3 mg/dL (<0.1-1.0); TOTAL PROTEIN 4.8 g/dL (6.4-8.2)
[2020-08-02 04:38] LABS: PREALBUMIN 12.1 mg/dL (18.0-35.7)
[2020-08-02 11:40] LABS: BE -0.2 mmol/L (-2 to +3); PCO2 41.8 mmHg (35.0-45.0); PO2 60.8 mmHg (75.0-100.0); pH 7.391 (7.340-7.450)
--- NOTE | 2020-08-02 14:42 | CON ---
[address] [address] CONSULTATION Name: REYNOLD FIGUEROA Room: [address] ADM IN M.R.#: [id number] Admission: 07/31/20 Attend Phys: Nitish Gee MD Discharge: Date of : 40 Report #: [id number] THIS REPORT FOR: //name// cc: [facility] physician unknown [facility] - Clinic physician unknown ~ DATE OF SERVICE: 07/31/2020 CONSULT REQUESTED BY: Dr. Nitish Gee. INDICATION FOR CONSULTATION: Ventilator management. HISTORY OF PRESENT ILLNESS: An 80-year-old gentleman with past medical history as mentioned below. The patient has had 2 recent admissions to this hospital, in fact was only recently discharged. He does have a history of COPD. He is on long-term oxygen. He also has a history of lung malignancy. We do not have full details available. The patient was admitted earlier with COVID-19, amongst other medications was treated with steroids as well as remdesivir, improved, was discharged, and was readmitted. During the initial hospitalization there was an abnormal perfusion scan and therefore, he was started on anticoagulation. The patient at that time had renal failure and therefore could not have a CTA chest. The patient during the second hospitalization again was COVID PCR positive, got more remdesivir, got more broad-spectrum antibiotics including doxycycline as well as Zosyn, initially had received Zithromax as well as cefdinir. He was treated with remdesivir again. We did do a CTA chest this time. There were no pulmonary emboli; however, the patient now went into atrial fibrillation and therefore was kept on Eliquis. Also, has been on amiodarone. The patient's condition has reported to have been declining over the last few days again. He has been becoming more short of breath and was admitted today again with respiratory distress. The patient was intubated in the silverio by the EMS, the patient currently is on the ventilator, he is on 100% FiO2. Some of the higher oxygen needs may however, also be because we are still in the process of sedating him. He does have extensive new infiltrates on his CT. The patient's blood pressure is on the lower side. Albumin is only 1.4. He is unable to provide a further history or review of systems. PAST MEDICAL HISTORY: Recent COVID-19, carcinoma of the lungs, being followed at [facility]. 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 However, a definite information regarding this is not available. He has received radiation treatments at [facility], COPD on long-term oxygen, recent possibility of pulmonary embolism, questionable as above. Subsequent development of atrial fibrillation, remaining on anticoagulation, coronary artery disease, chronic renal insufficiency, creatinine at times touches down to 1.0. Most of this baseline creatinine are 1.3-1.4, hypertension. The patient's [place] [address] CONSULTATION Name: REYNOLD FIGUEROA Room: [address] IN [facility].#: [id number] Admission: 07/31/20 Attend Phys: Nitish Gee MD Discharge: Date of : 40 Report #: [id number] May, shows a left ventricular ejection fraction of 60-65% with only mild elevation in right heart pressures to 40-45. SOCIAL HISTORY: There is an extensive history of smoking more than a pack a day for several decades, he discontinued about 10 years ago. 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 No known history of heavy alcohol use or illegal drug use. CURRENT MEDICATIONS: List in [facility] reviewed. HOME MEDICATIONS: List in [facility] reviewed. Also, see discussion above. FAMILY HISTORY: There is no pertinent family history. ALLERGIES: No known drug allergies. PHYSICAL EXAMINATION: GENERAL: He is sedated with Versed. VITAL SIGNS: Has a pulse of 72 and a blood pressure of 111/49, was saturating 94-95% on 100% FiO2, tidal volume is 500 with a AC rate of 16. He was not overbreathing the ventilator. Pulse 72, afebrile with a temperature of 36.3. HEENT: Head is normocephalic and atraumatic. NECK: Does not show raised JVP, asymmetry, mass or lymph nodes. There is an endotracheal tube in good position. CHEST: Symmetrical expansion on inspection and palpation. On auscultation, there are scattered expiratory wheezes heard. There are some rales in the right lung as well, particularly the right lung base. HEART: Regular. There is no murmur. ABDOMEN: Soft and nontender. EXTREMITIES: Lower extremities show no edema and no calf tenderness. SKIN: Dry and intact. NEUROLOGICAL: He did move all extremities to pain. CTA chest this morning in [facility] reviewed. I reviewed both the films as well as report. The CT head as well as chest x-rays and x-ray abdomen also in [facility] reviewed. Lab work in [facility] reviewed. Arterial blood gas is reviewed. ASSESSMENT AND PLAN: 1. Pevof-tl-yxwwmar hypoxemic/hypercarbic respiratory failure. We will continue with Versed drip. We will add a fentanyl drip if his blood pressure comes up, then we will assess as to whether we should switch Versed over to propofol. If his oxygen needs improve, then the use of Precedex later would also be a consideration, we will do an arterial blood gas and then readjust the ventilator. 2. Healthcare-associated pneumonia/extensive pulmonary infiltrates. These are mostly new since the last CT. He has received Zosyn [place] [address] CONSULTATION Name: REYNOLD FIGUEROA Room: [address] IN [facility]#: [id number] Admission: 07/31/20 Attend Phys: Nitish Gee MD Discharge: Date of : 40 Report #: [id number] well as cefdinir as well as Zithromax already recently. Antibiotics are therefore chosen accordingly, we will start with Zyvox, I chose Zyvox instead of vancomycin due to recent acute renal failure, I ordered cefepime and Flagyl. He received Levaquin, in a case we need to give him more Levaquin to provide Stenotrophomonas maltophilia coverage; however, he has been on amiodarone at home. Therefore, I decided not to order it again now. We will reassess tomorrow. 3. Chronic obstructive pulmonary disease exacerbation, nebulized bronchodilators as well as Solu-Medrol. 4. Paroxysmal atrial fibrillation/possibility of acute pulmonary embolism. I am not convinced that the patient has definite evidence of having had a pulmonary embolus. In the past he was recommended Eliquis by Cardiology for atrial fibrillation. He has a pleural effusion on the right side. It is possible it needs to tapped. Therefore, I decided not to order anticoagulation for now. May need to be restarted later. Note that he takes amiodarone at home. Defer to the primary service regarding whether amiodarone is restarted. 5. Severe malnutrition/hypoalbuminemia. We will give him one dose of albumin. We will watch blood pressure. If he is oxygenating well then I am inclined to give him more fluid and albumin. 6. Deep vein thrombosis prophylaxis. See discussion regarding anticoagulation as above. Also, SCDs. 7. Gastrointestinal prophylaxis, Protonix. 8. Hyperglycemia, insulin sliding scale for now, we will defer whether additional measures were taken by the primary service. The patient is critically ill at this time. Total time spent providing critical care to exceed 45 minutes. <ELECTRONICALLY SIGNED> By: Walter Austin MD 08/02/20 1442 1350 1448Aagnes Austin MD /nt
[2020-08-02 17:42] LABS: CALCIUM 7.4 mg/dL (8.5-10.1); CREATININE 1.1 mg/dL (0.6-1.3); MAGNESIUM 2.4 mg/dL (1.8-2.4); POTASSIUM 3.5 mmol/L (3.5-5.1)
[2020-08-03] VITALS (25 sets, daily range): BP systolic 82–143; BP diastolic 41–66
[2020-08-03 02:06] LABS: MYCOPLASMA PNEUMONIA IgG 291 U/mL (0-99); MYCOPLASMA PNEUMONIA IgM <770 U/mL (0-769)
[2020-08-03 05:38] LABS: HEMATOCRIT 26.8 % (42.0-52.0); HEMOGLOBIN 8.9 gm/dL (14.0-18.0); MCH 28.4 pg (26.0-34.0); MCHC 33.1 g/dL (28.0-37.0); MCV 85.9 fL (80.0-100.0); MPV 6.9 fl. (7.2-11.1); NUCLEATED RBCS 0 /100WBC; RBC 3.12 mil/uL (4.50-6.00); RDW-CV 17.1 % (10.5-14.5); WBC 10.7 thou/uL (4.0-11.0)
[2020-08-03 05:44] LABS: PLATELET COUNT* 424 thou/uL (150-400)
[2020-08-03 05:56] LABS: PREALBUMIN 15.3 mg/dL (18.0-35.7)
[2020-08-03 05:59] LABS: ALBUMIN 2.3 g/dL (3.4-5.0); CALCIUM 7.4 mg/dL (8.5-10.1); CREATININE 1.2 mg/dL (0.6-1.3); MAGNESIUM 2.2 mg/dL (1.8-2.4); POTASSIUM 3.3 mmol/L (3.5-5.1); TOTAL BILIRUBIN 0.6 mg/dL (<0.1-1.0); TOTAL PROTEIN 5.1 g/dL (6.4-8.2)
[2020-08-03 08:24] LABS: ABSOLUTE LYMPHOCYTES 0.7 thou/uL (0.8-5.3); ABSOLUTE MONOCYTES 0.1 thou/uL (0.0-1.2); ABSOLUTE NEUTROPHILS 9.8 thou/uL (1.6-8.1); ANISOCYTOSIS 1+; HYPOCHROMASIA 1+; OVALOCYTES Occasional; PLATELET ESTIMATE INCREASED; POIKILOCYTOSIS 1+
[2020-08-03 17:34] LABS: PHOSPHORUS* 2.7 mg/dL (2.5-4.9); POTASSIUM 4.2 mmol/L (3.5-5.1)
[2020-08-04] VITALS (16 sets, daily range): BP systolic 130–164; BP diastolic 57–78
[2020-08-04 04:36] LABS: ABSOLUTE LYMPHOCYTES 0.2 thou/uL (0.8-5.3); ABSOLUTE MONOCYTES 0.1 thou/uL (0.0-1.2); ABSOLUTE NEUTROPHILS 8.5 thou/uL (1.6-8.1); BASOPHILS 0.2 %; HEMATOCRIT 26.5 % (42.0-52.0); HEMOGLOBIN 9.2 gm/dL (14.0-18.0); LYMPHOCYTES 1.8 %; MCHC 34.9 g/dL (28.0-37.0); MCV 85.9 fL (80.0-100.0); MONOCYTES 1.6 %; MPV 6.4 fl. (7.2-11.1); NUCLEATED RBCS 0 /100WBC; PLATELET COUNT* 400 thou/uL (150-400); POLYS 96.4 %; RBC 3.08 mil/uL (4.50-6.00); RDW-CV 17.5 % (10.5-14.5); WBC 8.8 thou/uL (4.0-11.0)
[2020-08-04 04:49] LABS: CALCIUM 7.4 mg/dL (8.5-10.1); POTASSIUM 3.9 mmol/L (3.5-5.1)
[2020-08-05 00:38] VITALS: BP 170/83
[2020-08-05 04:00] VITALS: BP 163/70
[2020-08-05 06:05] LABS: ABSOLUTE BASOPHILS 0.1 thou/uL (0.0-0.2); ABSOLUTE LYMPHOCYTES 0.2 thou/uL (0.8-5.3); ABSOLUTE MONOCYTES 0.2 thou/uL (0.0-1.2); ABSOLUTE NEUTROPHILS 7.9 thou/uL (1.6-8.1); BASOPHILS 0.8 %; EOSINOPHILS 0.1 %; HEMATOCRIT 28.7 % (42.0-52.0); HEMOGLOBIN 9.6 gm/dL (14.0-18.0); LYMPHOCYTES 2.3 %; MCH 28.5 pg (26.0-34.0); MCHC 33.5 g/dL (28.0-37.0); MCV 85.1 fL (80.0-100.0); MONOCYTES 2.2 %; MPV 6.6 fl. (7.2-11.1); NUCLEATED RBCS 0 /100WBC; PLATELET COUNT* 374 thou/uL (150-400); POLYS 94.6 %; RBC 3.37 mil/uL (4.50-6.00); RDW-CV 17.4 % (10.5-14.5); WBC 8.4 thou/uL (4.0-11.0)
[2020-08-05 06:24] LABS: ALBUMIN 2.4 g/dL (3.4-5.0); CALCIUM 7.3 mg/dL (8.5-10.1); CREATININE 0.9 mg/dL (0.6-1.3); POTASSIUM 3.5 mmol/L (3.5-5.1); TOTAL BILIRUBIN 0.8 mg/dL (<0.1-1.0); TOTAL PROTEIN 5.1 g/dL (6.4-8.2)
[2020-08-05 08:00] VITALS: BP 172/79
[2020-08-05 12:00] VITALS: BP 160/80
[2020-08-05 19:26] VITALS: BP 154/75
[2020-08-06] VITALS: BP 143/67
[2020-08-06 04:20] VITALS: BP 137/77
[2020-08-06 06:22] LABS: HEMATOCRIT 30.5 % (42.0-52.0); HEMOGLOBIN 10.1 gm/dL (14.0-18.0); MCH 28.6 pg (26.0-34.0); MCHC 33.2 g/dL (28.0-37.0); MCV 86.1 fL (80.0-100.0); MPV 6.8 fl. (7.2-11.1); NUCLEATED RBCS 0 /100WBC; PLATELET COUNT* 319 thou/uL (150-400); RBC 3.54 mil/uL (4.50-6.00); RDW-CV 17.1 % (10.5-14.5); WBC 7.7 thou/uL (4.0-11.0)
[2020-08-06 06:35] LABS: ALBUMIN 2.4 g/dL (3.4-5.0); CALCIUM 7.6 mg/dL (8.5-10.1); CREATININE 0.9 mg/dL (0.6-1.3); MAGNESIUM 1.9 mg/dL (1.8-2.4); POTASSIUM 3.9 mmol/L (3.5-5.1); TOTAL BILIRUBIN 0.8 mg/dL (<0.1-1.0); TOTAL PROTEIN 5.1 g/dL (6.4-8.2)
[2020-08-06 06:59] LABS: ABSOLUTE LYMPHOCYTES 0.2 thou/uL (0.8-5.3); ABSOLUTE MONOCYTES 0.1 thou/uL (0.0-1.2); ABSOLUTE NEUTROPHILS 7.5 thou/uL (1.6-8.1)
[2020-08-06 07:00] LABS: ANISOCYTOSIS 1+; PLATELET ESTIMATE ADEQUATE; POIKILOCYTOSIS 1+
[2020-08-06 12:00] VITALS: BP 131/70
[2020-08-06 12:20] LABS: BF RBC <1000 /mm3; TOTAL CELL COUNT 109 /mm3
[2020-08-06 12:40] LABS: CLARITY CLEAR; TOTAL VOLUME 850 ml
[2020-08-06 12:43] LABS: BF LYMPHOCYTES 76 %; BF MONOCYTES 16 %; BF POLYS 8 %; BF TISSUE 1 /100 WBC
[2020-08-06 12:46] LABS: SOURCE PLEURAL FLUID
[2020-08-06 16:00] VITALS: BP 155/69
[2020-08-07] VITALS: BP 145/72
[2020-08-07 04:00] VITALS: BP 150/74
[2020-08-07 08:00] VITALS: BP 146/75
[2020-08-07 12:42] VITALS: BP 136/65
[2020-08-07 16:11] VITALS: BP 141/70
[2020-08-08 00:22] VITALS: BP 147/51
[2020-08-08 04:54] LABS: CALCIUM 8.1 mg/dL (8.5-10.1); CREATININE 1.3 mg/dL (0.6-1.3); POTASSIUM 3.5 mmol/L (3.5-5.1)
[2020-08-08 05:11] LABS: ABSOLUTE LYMPHOCYTES 0.2 thou/uL (0.8-5.3); ABSOLUTE MONOCYTES 0.6 thou/uL (0.0-1.2); ABSOLUTE NEUTROPHILS 12.9 thou/uL (1.6-8.1); BASOPHILS 0.2 %; HEMATOCRIT 31.9 % (42.0-52.0); HEMOGLOBIN 10.3 gm/dL (14.0-18.0); LYMPHOCYTES 1.5 %; MCH 28.5 pg (26.0-34.0); MCHC 32.3 g/dL (28.0-37.0); MONOCYTES 4.4 %; MPV 7.1 fl. (7.2-11.1); NUCLEATED RBCS 0 /100WBC; PLATELET COUNT* 291 thou/uL (150-400); POLYS 93.9 %; RBC 3.62 mil/uL (4.50-6.00); RDW-CV 17.9 % (10.5-14.5); WBC 13.8 thou/uL (4.0-11.0)
[2020-08-08 05:18] VITALS: BP 138/56
[2020-08-08 08:00] VITALS: BP 153/76
[2020-08-08 11:30] VITALS: BP 140/68
--- NOTE | 2020-08-08 15:07 | PATH ---
[address] [address] PATHOLOGY RPT PROCEDURE Name: REYNOLD FIGUEROA Room: [address] IN [facility]#: [id number] Admission: 07/31/20 Date of : 40 Discharge: Report #: [id number] Path Case #: [id number] Note [facility] Accession Number: [id number] TESTS RESULT FLAG UNITS REF RANGE LAB Clinician Provided Cytology Information No. of containers..01 Other (Miscellaneous) Source: PLEURAL FLUID DIAGNOSIS: 02 PLEURAL FLUID, SIDE NOT SPECIFIED: NEGATIVE FOR MALIGNANT CELLS. SCANT CELLULARITY. FEW MESOTHELIAL CELLS AND INFLAMMATORY CELLS. THIS INTERPRETATION INCLUDES EVALUATION OF A CELL BLOCK. Signed out by: 02 Luis Oliveira MD, Pathologist NPI- [id number] Performed by: 01 Camilo Banks, Railcar Mechanic ([facility]) Gross description: 01 15ML, YELLOW, 1TP 1CB /LCS 08/07/2020 1311 Local FLAG LEGEND: L-Low Normal,H-High Normal,LL-Alert Low,HH-Alert High <-Panic Low,>-Panic High,A-Abnormal,AA-Critical Abnormal Performed at: [address] [place] [address] Bentley Jiménez MD, [address] [address] Luis Oliveira MD, Specimen Comment: A courtesy copy of this report has been sent to [phone], [phone] Specimen Comment: [id number] Specimen Comment: Report sent to DR DECKER / DR WATSON Performed at: [address], [place], [place] [id number] MD Bentley Jiménez MD Phone: [phone]
[2020-08-08 16:30] VITALS: BP 141/65
[2020-08-08 20:00] VITALS: BP 170/81
[2020-08-09 00:09] VITALS: BP 146/80
[2020-08-09 04:48] VITALS: BP 160/73
[2020-08-09 05:18] LABS: ABSOLUTE LYMPHOCYTES 0.2 thou/uL (0.8-5.3); ABSOLUTE MONOCYTES 0.2 thou/uL (0.0-1.2); ABSOLUTE NEUTROPHILS 8.8 thou/uL (1.6-8.1); BASOPHILS 0.2 %; HEMATOCRIT 28.4 % (42.0-52.0); HEMOGLOBIN 9.4 gm/dL (14.0-18.0); LYMPHOCYTES 2.1 %; MCH 28.9 pg (26.0-34.0); MCV 87.6 fL (80.0-100.0); MONOCYTES 2.4 %; MPV 7.1 fl. (7.2-11.1); NUCLEATED RBCS 0 /100WBC; POLYS 95.3 %; RBC 3.24 mil/uL (4.50-6.00); RDW-CV 17.8 % (10.5-14.5); WBC 9.2 thou/uL (4.0-11.0)
[2020-08-09 05:45] LABS: ALBUMIN 2.3 g/dL (3.4-5.0); CALCIUM 8.3 mg/dL (8.5-10.1); CREATININE 1.1 mg/dL (0.6-1.3); POTASSIUM 4.4 mmol/L (3.5-5.1); TOTAL BILIRUBIN 0.5 mg/dL (<0.1-1.0); TOTAL PROTEIN 4.3 g/dL (6.4-8.2)
[2020-08-09 05:56] LABS: PLATELET COUNT* 172 thou/uL (150-400)
[2020-08-09 08:00] VITALS: BP 141/68
[2020-08-09 16:00] VITALS: BP 141/65
[2020-08-09 20:00] VITALS: BP 156/63
[2020-08-10 08:00] VITALS: BP 156/66
[2020-08-10 11:00] VITALS: BP 147/60
[2020-08-10 17:00] VITALS: BP 172/69
[2020-08-10 20:00] VITALS: BP 164/73
[2020-08-11 08:00] VITALS: BP 166/84
[2020-08-11 14:00] VITALS: BP 162/76
[2020-08-11 16:00] VITALS: BP 145/80
[2020-08-11 20:00] VITALS: BP 147/65
[2020-08-12] VITALS (7 sets, daily range): BP systolic 115–167; BP diastolic 64–75
[2020-08-12 04:37] LABS: HEMATOCRIT 28.1 % (42.0-52.0); HEMOGLOBIN 9.3 gm/dL (14.0-18.0); MCH 28.7 pg (26.0-34.0); MPV 8.2 fl. (7.2-11.1); RBC 3.23 mil/uL (4.50-6.00); RDW-CV 17.2 % (10.5-14.5); WBC 12.1 thou/uL (4.0-11.0)
[2020-08-12 05:15] LABS: ALBUMIN 2.3 g/dL (3.4-5.0); CALCIUM 7.5 mg/dL (8.5-10.1); CREATININE 1.1 mg/dL (0.6-1.3); MAGNESIUM 1.6 mg/dL (1.8-2.4); POTASSIUM 3.7 mmol/L (3.5-5.1); TOTAL BILIRUBIN 0.5 mg/dL (<0.1-1.0); TOTAL PROTEIN 4.7 g/dL (6.4-8.2)
[2020-08-12] MEDS ORDERED: AMOX TR-K CLV1 EAC4 PO (11:51)
[2020-08-12] MEDS ORDERED: XALATAN2.5 ML OPHTHALMIC (11:52)
[2020-08-12] MEDS ORDERED: VITAMIN D325 MCG PO (11:53)
[2020-08-12] MEDS ORDERED: VITCB500GO PO (11:53)
[2020-08-12] MEDS ORDERED: MELATONIN5 M1 PO (11:53)
[2020-08-12] MEDS ORDERED: PREDNISONE 20 M20 MG PO (11:53)
[2020-08-13 04:00] VITALS: BP 170/78
[2020-08-13 08:00] VITALS: BP 160/74
[2020-08-13 12:00] VITALS: BP 145/68
== END 2020-08-13 17:02 | DRG 208 ==
LOC: M.ERS 08:43 → M.TBA-ER 10:19 → M.ICU 10:19 → M.2W 08-04 18:55
PROVIDERS: Emergency Medicine Emergency Medical Services; Internal Medicine; Internal Medicine Critical Care Medicine; Nurse Practitioner Adult Health; ADMIT Internal Medicine; ATTEND Internal Medicine
PROC: 0BH17EZ Insertion of Endotracheal Airway into Trachea, Via Natural or Artificial Opening (ICD-10-PCS; principal; 2020-07-31)
PROC: 02HV33Z Insertion of Infusion Device into Superior Vena Cava, Percutaneous Approach (ICD-10-PCS; principal; 2020-07-31)
PROC: 0W993ZZ Drainage of Right Pleural Cavity, Percutaneous Approach (ICD-10-PCS; principal; 2020-07-31)
PROC: 5A1945Z Respiratory Ventilation, 24-96 Consecutive Hours (ICD-10-PCS; principal; 2020-07-31)
PROC: 30233N1 Transfusion of Nonautologous Red Blood Cells into Peripheral Vein, Percutaneous Approach (ICD-10-PCS; 2020-08-01)
PROC: 5A0935A Assistance with Respiratory Ventilation, Less than 24 Consecutive Hours, High Flow/Velocity Cannula (ICD-10-PCS; 2020-08-02)
PROC: 5A0935A Assistance with Respiratory Ventilation, Less than 24 Consecutive Hours, High Flow/Velocity Cannula (ICD-10-PCS; 2020-08-03)
PROC: 5A09357 Assistance with Respiratory Ventilation, Less than 24 Consecutive Hours, Continuous Positive Airway Pressure (ICD-10-PCS; 2020-08-04)
PROC: 5A0935A Assistance with Respiratory Ventilation, Less than 24 Consecutive Hours, High Flow/Velocity Cannula (ICD-10-PCS; 2020-08-04)
PROC: 5A0935A Assistance with Respiratory Ventilation, Less than 24 Consecutive Hours, High Flow/Velocity Cannula (ICD-10-PCS; 2020-08-05)
PROC: 5A0935A Assistance with Respiratory Ventilation, Less than 24 Consecutive Hours, High Flow/Velocity Cannula (ICD-10-PCS; 2020-08-06)
PROC: 5A0935A Assistance with Respiratory Ventilation, Less than 24 Consecutive Hours, High Flow/Velocity Cannula (ICD-10-PCS; 2020-08-07)
PROC: 5A0935A Assistance with Respiratory Ventilation, Less than 24 Consecutive Hours, High Flow/Velocity Cannula (ICD-10-PCS; 2020-08-08)
PROC: 5A0935A Assistance with Respiratory Ventilation, Less than 24 Consecutive Hours, High Flow/Velocity Cannula (ICD-10-PCS; 2020-08-09)
PROC: 5A0935A Assistance with Respiratory Ventilation, Less than 24 Consecutive Hours, High Flow/Velocity Cannula (ICD-10-PCS; 2020-08-10)
PROC: 5A0935A Assistance with Respiratory Ventilation, Less than 24 Consecutive Hours, High Flow/Velocity Cannula (ICD-10-PCS; 2020-08-11)
DX: J96.21 Acute and chronic respiratory failure with hypoxia (principal); J18.9 Pneumonia, unspecified organism; E43 Unspecified severe protein-calorie malnutrition; R71.0 Precipitous drop in hematocrit; J90 Pleural effusion, not elsewhere classified; J96.22 Acute and chronic respiratory failure with hypercapnia; R73.9 Hyperglycemia, unspecified; G47.00 Insomnia, unspecified; E78.5 Hyperlipidemia, unspecified; I48.0 Paroxysmal atrial fibrillation; M25.511 Pain in right shoulder; E78.00 Pure hypercholesterolemia, unspecified; J43.9 Emphysema, unspecified; I10 Essential (primary) hypertension; Z20.828 Contact with and (suspected) exposure to other viral communicable diseases; Z86.73 Personal history of transient ischemic attack (TIA), and cerebral infarction without residual deficits; Z79.899 Other long term (current) drug therapy; Z68.20 Body mass index [BMI] 20.0-20.9, adult; Z87.891 Personal history of nicotine dependence; Z85.118 Personal history of other malignant neoplasm of bronchus and lung; Z92.3 Personal history of irradiation; Z28.21 Immunization not carried out because of patient refusal

== ENCOUNTER 2020-08-13 15:05 | Inpatient (IN) | payer MEDICARE ==
[~2020-08-13] VITALS: Ht 170.2 cm; Wt 55.5 kg
[~2020-08-13 15:05] MED LIST changes: +AMOX TR-K CLV1 EAC4 PO; +MELATONIN5 M1 PO; +PREDNISONE 20 M20 MG PO; +VITAMIN D325 MCG PO; +VITCB500GO PO; +XALATAN2.5 ML OPHTHALMIC
[2020-08-13 17:30] VITALS: BP 154/64
[2020-08-13 19:00] VITALS: BP 149/68
[2020-08-14 04:33] LABS: HEMATOCRIT 29.8 % (42.0-52.0); HEMOGLOBIN 9.7 gm/dL (14.0-18.0); MCH 28.1 pg (26.0-34.0); MCHC 32.7 g/dL (28.0-37.0); MPV 8.1 fl. (7.2-11.1); RBC 3.46 mil/uL (4.50-6.00); RDW-CV 17.8 % (10.5-14.5); WBC 14.6 thou/uL (4.0-11.0)
[2020-08-14 04:46] LABS: CALCIUM 7.9 mg/dL (8.5-10.1); POTASSIUM 4.6 mmol/L (3.5-5.1)
[2020-08-14 08:00] VITALS: BP 159/71
[2020-08-14 20:00] VITALS: BP 145/54
[2020-08-15 04:31] LABS: HEMATOCRIT 28.2 % (42.0-52.0); HEMOGLOBIN 9.3 gm/dL (14.0-18.0); MCH 28.3 pg (26.0-34.0); MCHC 32.9 g/dL (28.0-37.0); MCV 86.2 fL (80.0-100.0); MPV 8.1 fl. (7.2-11.1); NUCLEATED RBCS 0 /100WBC; PLATELET COUNT* 197 thou/uL (150-400); RBC 3.28 mil/uL (4.50-6.00); RDW-CV 17.8 % (10.5-14.5)
[2020-08-15 06:39] LABS: ABSOLUTE MONOCYTES 0.3 thou/uL (0.0-1.2); ABSOLUTE NEUTROPHILS 11.7 thou/uL (1.6-8.1); ANISOCYTOSIS 1+; PLATELET ESTIMATE INCREASED; POIKILOCYTOSIS 1+
[2020-08-15 08:00] VITALS: BP 156/68
[2020-08-15 20:00] VITALS: BP 134/52
[2020-08-16 08:00] VITALS: BP 148/65
[2020-08-16 19:45] VITALS: BP 146/63
[2020-08-17 07:38] VITALS: BP 141/56
[2020-08-17 19:00] VITALS: BP 140/60
[2020-08-18 07:17] VITALS: BP 141/60
[2020-08-18 20:00] VITALS: BP 124/58
[2020-08-19 08:08] VITALS: BP 142/61
[2020-08-19 20:00] VITALS: BP 119/47
[2020-08-20 04:22] LABS: HEMATOCRIT 28.6 % (42.0-52.0); HEMOGLOBIN 9.5 gm/dL (14.0-18.0); MCHC 33.3 g/dL (28.0-37.0); MCV 87.1 fL (80.0-100.0); RBC 3.28 mil/uL (4.50-6.00); RDW-CV 19.4 % (10.5-14.5)
[2020-08-20 05:10] LABS: CALCIUM 7.5 mg/dL (8.5-10.1); CREATININE 0.9 mg/dL (0.6-1.3); MAGNESIUM 1.9 mg/dL (1.8-2.4)
[2020-08-20 08:00] VITALS: BP 131/60
[2020-08-20 19:00] VITALS: BP 149/61
[2020-08-21 04:29] LABS: HEMATOCRIT 28.9 % (42.0-52.0); HEMOGLOBIN 9.9 gm/dL (14.0-18.0); MCH 29.9 pg (26.0-34.0); MCHC 34.1 g/dL (28.0-37.0); MCV 87.8 fL (80.0-100.0); MPV 7.8 fl. (7.2-11.1); RBC 3.3 mil/uL (4.50-6.00); RDW-CV 19.2 % (10.5-14.5); WBC 5.6 thou/uL (4.0-11.0)
[2020-08-21 04:35] LABS: CALCIUM 7.2 mg/dL (8.5-10.1); CREATININE 0.8 mg/dL (0.6-1.3); POTASSIUM 4.2 mmol/L (3.5-5.1)
[2020-08-21 08:00] VITALS: BP 138/56
[2020-08-21 19:00] VITALS: BP 113/45
[2020-08-22 08:00] VITALS: BP 158/65
[2020-08-22 14:59] LABS: INFLUENZA A ANTIGEN Negative (Negative); INFLUENZA B ANTIGEN Negative (Negative)
[2020-08-22 20:00] VITALS: BP 120/60
[2020-08-23 08:30] VITALS: BP 140/62
[2020-08-23 19:00] VITALS: BP 128/57
[2020-08-24 08:00] VITALS: BP 133/58
[2020-08-24 17:47] LABS: HEMATOCRIT 28.8 % (42.0-52.0); HEMOGLOBIN 9.3 gm/dL (14.0-18.0); MCHC 32.4 g/dL (28.0-37.0); MCV 89.4 fL (80.0-100.0); MPV 7.7 fl. (7.2-11.1); NUCLEATED RBCS 0 /100WBC; PLATELET COUNT* 121 thou/uL (150-400); RBC 3.22 mil/uL (4.50-6.00); RDW-CV 18.9 % (10.5-14.5); WBC 3.7 thou/uL (4.0-11.0)
[2020-08-24 18:07] LABS: CREATININE 1.1 mg/dL (0.6-1.3)
[2020-08-24 18:12] LABS: ABSOLUTE LYMPHOCYTES 0.1 thou/uL (0.8-5.3); ABSOLUTE MONOCYTES 0.1 thou/uL (0.0-1.2); ABSOLUTE NEUTROPHILS 3.5 thou/uL (1.6-8.1); ANISOCYTOSIS 1+; PLATELET ESTIMATE ADEQUATE
[2020-08-24 18:55] LABS: ESR (SEDRATE) 20 mm/hr (0-20)
[2020-08-24 20:55] VITALS: BP 134/57
[2020-08-25 07:50] VITALS: BP 139/97
[2020-08-25 19:51] VITALS: BP 113/63
[2020-08-25 19:53] VITALS: BP 113/69
[2020-08-26 07:30] VITALS: BP 122/62
[2020-08-26 19:00] VITALS: BP 116/56
[2020-08-27 04:25] LABS: HEMATOCRIT 26.4 % (42.0-52.0); HEMOGLOBIN 8.8 gm/dL (14.0-18.0); MCH 29.1 pg (26.0-34.0); MCHC 33.4 g/dL (28.0-37.0); MCV 86.9 fL (80.0-100.0); MPV 7.3 fl. (7.2-11.1); NUCLEATED RBCS 1 /100WBC; PLATELET COUNT* 111 thou/uL (150-400); RBC 3.04 mil/uL (4.50-6.00); RDW-CV 18.4 % (10.5-14.5)
[2020-08-27 04:58] LABS: CALCIUM 8.1 mg/dL (8.5-10.1); CREATININE 0.9 mg/dL (0.6-1.3); POTASSIUM 4.2 mmol/L (3.5-5.1)
[2020-08-27 06:59] LABS: ABSOLUTE LYMPHOCYTES 0.2 thou/uL (0.8-5.3); ABSOLUTE MONOCYTES 0.1 thou/uL (0.0-1.2); ABSOLUTE NEUTROPHILS 2.7 thou/uL (1.6-8.1); PLATELET ESTIMATE DECREASED
[2020-08-27 07:00] LABS: ANISOCYTOSIS 2+; MICROCYTES 1+
[2020-08-27 07:01] LABS: TOXIC GRANULATION 2+
[2020-08-27 07:45] VITALS: BP 97/58
[2020-08-27 20:00] VITALS: BP 119/65
[2020-08-28 04:15] LABS: ABSOLUTE LYMPHOCYTES 0.3 thou/uL (0.8-5.3); ABSOLUTE MONOCYTES 0.1 thou/uL (0.0-1.2); ABSOLUTE NEUTROPHILS 2.7 thou/uL (1.6-8.1); BASOPHILS 0.1 %; EOSINOPHILS 0.2 %; HEMATOCRIT 25.2 % (42.0-52.0); HEMOGLOBIN 8.3 gm/dL (14.0-18.0); LYMPHOCYTES 9.2 %; MCH 28.4 pg (26.0-34.0); MCHC 32.8 g/dL (28.0-37.0); MCV 86.7 fL (80.0-100.0); MONOCYTES 3.5 %; MPV 7.1 fl. (7.2-11.1); NUCLEATED RBCS 1 /100WBC; PLATELET COUNT* 115 thou/uL (150-400); RBC 2.91 mil/uL (4.50-6.00); RDW-CV 18.4 % (10.5-14.5); WBC 3.1 thou/uL (4.0-11.0)
[2020-08-28 04:28] LABS: ALBUMIN 1.6 g/dL (3.4-5.0); CALCIUM 8.2 mg/dL (8.5-10.1); CREATININE 0.8 mg/dL (0.6-1.3); POTASSIUM 4.3 mmol/L (3.5-5.1); TOTAL BILIRUBIN 0.3 mg/dL (<0.1-1.0); TOTAL PROTEIN 4.2 g/dL (6.4-8.2)
[2020-08-28 07:38] VITALS: BP 144/69
[2020-08-28 20:00] VITALS: BP 116/62
[2020-08-29 08:00] VITALS: BP 118/58
[2020-08-29 14:44] VITALS: BP 118/58
== END 2020-08-29 16:06 | disposition home or self-care (01) | DRG 947 ==
LOC: M.REH 15:05
PROVIDERS: Family Medicine; Internal Medicine; Nurse Practitioner Family; ADMIT Physical Medicine & Rehabilitation; ATTEND Physical Medicine & Rehabilitation
DX: R53.81 Other malaise (principal); J96.21 Acute and chronic respiratory failure with hypoxia; J96.22 Acute and chronic respiratory failure with hypercapnia; J18.9 Pneumonia, unspecified organism; B37.0 Candidal stomatitis; L03.90 Cellulitis, unspecified; E44.0 Moderate protein-calorie malnutrition; Z68.1 Body mass index [BMI] 19.9 or less, adult; J91.8 Pleural effusion in other conditions classified elsewhere; I10 Essential (primary) hypertension; E78.5 Hyperlipidemia, unspecified; I48.91 Unspecified atrial fibrillation; R73.9 Hyperglycemia, unspecified; D64.9 Anemia, unspecified; G47.00 Insomnia, unspecified; B35.9 Dermatophytosis, unspecified; J43.9 Emphysema, unspecified; Z20.828 Contact with and (suspected) exposure to other viral communicable diseases; Z86.73 Personal history of transient ischemic attack (TIA), and cerebral infarction without residual deficits; Z85.118 Personal history of other malignant neoplasm of bronchus and lung; Z86.19 Personal history of other infectious and parasitic diseases; Z79.899 Other long term (current) drug therapy